=== PATIENT | male | born 1940 | race Caucasian/White ===

== ENCOUNTER 2016-05-27 11:38 | Inpatient (IN) ==
[2016-05-27 13:11] VITALS: BMI 34.2
--- NOTE | 2016-05-27 15:05 | RS.PTINEVL ---
Subjective - Patient information Date of Evaluation: 05/27/16 Date of Arrival on Unit: 05/27/16 Admitted From:: Facility Transfer ([facility]) Usual Living Arrangement: Alone Living Arrangement Comments: Lives at home alone or stays with exwife on occasion Surgical History Comments:: right TKA, Left TKA 05/24/16, bilateral CTS Subjective Information/ Patient Comments:: Patient reports having a hard time waking up. States he has to go to the bathroom. - Level of function Prior to this admission, the patient could do the following:: Independent Selfcare, Independent ADL's, Independent Ambulation Current Level of Function: Partially Dependent Current Equipment Used at Home: walker, bedside commode Interventions - Objective Patient Orientation: Person, Place, Time, Situation Observation: Light dressing to anterior aspect of left knee. Swelling throughout the left LE. Range of Motion - ROM Right Upper Extremity AROM: Slight limitation Left Upper Extremity AROM: Slight limitation Right Lower Extremity AROM: Slight limitation Left Lower Extremity AROM: Marked limitation (left knee) Comments:: Patient demonstrates general rigidity throughout UE and LE's due to Parkinson's. Muscle Strength - Muscle Strength Comments:: Muscle strength of bilateral UE and right LE generally 4/5. Left knee 3+/5, hip and ankle 4/5. Balance - Sitting Balance and Reactions Static Sitting Balance: Fair (+) Dynamic Sitting Balance: Fair (+) - Standing Balance and Reactions Static Standing Balance: Poor (+) Dynamic Standing Balance: Poor (+) Functional Mobility - Bed Mobility Scooting: Mod Assist, 1 person assist, Verbal Cues, Tactile Cues Supine to Sit: Mod Assist, Max Assist, 1 person assist, Verbal Cues, Tactile Cues - Transfers Sit to Stand: Mod Assist, 1 person assist, Verbal Cues, Tactile Cues Stand to Sit: Mod Assist, 1 person assist, Verbal Cues, Tactile Cues Stand Pivot Transfers: Mod Assist, 1 person assist, Verbal Cues, Tactile Cues - Safety Awareness Safety Awareness: Fair Ambulation - Ambulation Weight Bearing Status: FWB Assistive Device Used: Rolling Walker Assistance needed with Ambulation: Mod Assist, 1 person assist, Verbal Cues, Tactile Cues Gait Deviations: Narrow Based gait, Shuffling gait, Step-to gait, Forward posture, Short stride, Lacks step continuity Ambulation Comments: Patient ambulates with left LE in the lead and right LE stays behind with each step and advancement with the walker. Factors Affecting Ambulation: Decreased Balance, Pain, Weakness, Decreased ROM, Decreased Safety Treatment time - Time with patient Total treatment time: 25 (mins) Assessment - Assessment Problem List:: Decreased level of function, Requires training/education, Decreased safety/Risk of falls, Weakness, Pain limits previous level of function Rehab Potential: Good Further Therapy Indicated?: Yes Comments: Patient demonstrates great difficulty with movement: bed mobility, transfers,and ambulation. He presents to be at a high risk for falls and demonstrates the need for skilled therapy to regain his previous level of mobility and improve his safety. Short Term Goals GOAL #1: Supine to sit with min assit of one. Goal to be met by: 06/01/16 GOAL #2: Sit to stand with CGA of one, consistently pushing with UE from seat. Goal to be met by: 06/01/16 GOAL #3: Amb. with rolling walker with step through gait 60 feet w/ CGA of one. Goal to be met by: 06/01/16 Construction Coordinator Goals GOAL #1: All bed mobility independent. Goal to be met by: 06/10/16 GOAL #2: All transfers independent with good safety using RW. Goal to be met by: 06/10/16 GOAL #3: Pt amb. with RW household distances with good safety, with supvn. Goal to be met by: 06/10/16 Plan Plan of Care: Therapeutic EX, Neuromuscular Re-Educ, Therapeutic Activity, Self- Care/Home Management Modalities: Cold Pack/Cryotherapy Frequency of Treatment: 1-2 X day, as tolerated Duration of Treatment: 2 Weeks Anticipated Discharge Destination: Home
[2016-05-27] MEDS ORDERED: ENTACAPONE PO SCH ×2 (17:00→21:00)
[2016-05-27] MEDS ORDERED: CARBIDOPA PO SCH ×2 (17:00→21:00)
[2016-05-27] MEDS ORDERED: [UNRECOGNIZED DRUG - OTHER] PO SCH ×2 (17:00→21:00)
[2016-05-27] MEDS ORDERED: LEVODOPA PO SCH ×2 (17:00→21:00)
[2016-05-27] MEDS: LIPITOR PO SCH ×2 (17:56→21:31)
[2016-05-27] MEDS: LEVODOPA PO SCH (17:58)
[2016-05-27] MEDS: [UNRECOGNIZED DRUG - OTHER] PO SCH (17:58)
[2016-05-27] MEDS: ENTACAPONE PO SCH (17:58)
[2016-05-27] MEDS: CARBIDOPA PO SCH (17:58)
[2016-05-27] MEDS ORDERED: LOPRESSOR PO SCH (21:00)
[2016-05-27] MEDS ORDERED: NON-FORMULARY MEDICATION (Fluoxetine Hcl [Prozac] 40 MG) PO SCH (21:00)
[2016-05-28] MEDS: CARBIDOPA PO SCH (05:52)
[2016-05-28] MEDS: LEVODOPA PO SCH (05:52)
[2016-05-28] MEDS: ENTACAPONE PO SCH (05:52)
[2016-05-28] MEDS: [UNRECOGNIZED DRUG - OTHER] PO SCH (05:52)
[2016-05-28] MEDS ORDERED: ZANTAC PO SCH (06:30)
[2016-05-28] MEDS ORDERED: NON-FORMULARY MEDICATION (Multivitamin [Multi-Vitamin Daily] 1 EACH) PO SCH ×22 (09:00)
[2016-05-28] MEDS ORDERED: OMEGA PO SCH (09:00)
[2016-05-28] MEDS ORDERED: [UNRECOGNIZED DRUG - OTHER] PO SCH (09:00)
[2016-05-28] MEDS ORDERED: VIT E PO SCH (09:00)
[2016-05-28] MEDS ORDERED: UBIDECARENONE PO SCH (09:00)
[2016-05-28] MEDS: COLACE PO SCH ×2 (10:18→20:15)
[2016-05-28] MEDS: LOPRESSOR PO SCH ×2 (10:18→20:16)
[2016-05-28] MEDS: STALEVO PO SCH ×3 (10:19→20:18)
[2016-05-28] MEDS: ZESTRIL PO SCH (10:20)
[2016-05-28] MEDS: NON-FORMULARY MEDICATION (Vitamin B Complex [Vitamin B Complex] 1 EACH) PO SCH (10:20)
[2016-05-28] MEDS: LACTULOSE PO SCH ×2 (10:24→20:16)
[2016-05-28] MEDS ORDERED: NON-FORMULARY MEDICATION (Omega-3 Fatty Acids/Fish Oil [Fish Oil 1,000 Mg Capsule] 1 CAP) PO SCH ×22 (10:45)
--- NOTE | 2016-05-28 11:16 | HP ---
SOURCE: The source of this information is prior knowledge of the patient, review of recent [facility] records, discussion with the patient. The patient is slightly unreliable. PATIENT PROFILE: Luca is a 75-year-old male resident of [facility] [place]. He was cooperative. CHIEF COMPLAINT: "I need rehab." BRIEF HISTORY OF PRESENT ILLNESS: Luca was admitted to [facility] for incapacitating pain in the left knee and had a left total knee. I saw him perioperatively. His gait did not reach a level to allow him to go home and he chose to come here for rehabilitation. He has other comorbidities that influence this (see below). His blood counts at [facility] was running around 10 to 11 with no sign of bleeding. PAST HISTORY: CHILDHOOD: Unremarkable. ALLERGIES/INTOLERANCE: MILK (GI UPSET), TYLOX (SEVERE HIVES), ULTRAM (DIZZINESS) , VIAGRA (HEARTBURN) HOME MEDICATIONS: 1. B-complex vitamin one by mouth each day 2. Multivitamin one by mouth each day 3. Zantac 150 mg each day 4. Coenzyme Q/Fish Oil/Vitamin E one by mouth each day 5. Prozac 20 mg two tablets by mouth each day 6. Aspirin 81 mg one by mouth each day 7. Lopressor 50 mg one-half tablet twice a day 8. Stalevo/Carbidopa/Levodopa/Entacapone 100 mg, two 6 a.m., two at 10 a.m., two at five p.m. and one in the evening 9. Lipitor 10 mg one by mouth at night 10. Zestril 5 mg one by mouth each day CURRENT MEDICATIONS: 1. Calcium 325 mg one by mouth each day 2. Victoria 3 Fish Oil vitamin one by mouth each day 3. Vitamin B Complex one by mouth each day 4. Isabel 10 mg one every four hours as needed 5. Zestril 5 mg one a day 6. Prozac 40 mg a day 7. Lopressor 25 mg b.i.d. 8. Zantac 150 mg a day 9. Lipitor 10 mg a day 10. Stalevo one by mouth as noted above 11. Xarelto 20 mg a day HOSPITALIZATIONS/SURGERIES/PROCEDURES: [facility] admissions include: 04/17/09 for psychiatry; 05/24/16 left total knee. [facility] includes 03/26 through 04/05/11 for right total knee and complications; 04/05 through 04/12/11 TCU; 05/31 through 06/02/14 for acute GA. He has had numerous colonoscopies, the last one showed diverticular disease, hemorrhoidal disease at [facility] by Dr. Beltran on 01/06/13 to repeat in 5 years; previous showed no additional findings. He has had several EGDs, the last with dilatation , a finding of hiatal hernia at [facility], Dr. Beltran on 05/16/14. Previous EGDs additionally had shown LA Grade D esophagitis. Heart cath and stent, Dr. Hunt , [facility], 06/01/14. He had carpal tunnel by Tobias Landa in 1989; the other side the same year. Orthoscopic right knee, Dr. Batsheva Landa, first right then left in the . He had a right ACL, Dr. Tobias Ladna, . He had nasal lesion removed by Dr. Mendoza at [facility], 12/17/10. A right total knee, Dr. Drake, [facility], 03/26/11 and subsequent debridement of that knee , [facility] on 03/31/11. FAMILY HISTORY: Diabetes in mother; heart disease in maternal uncle; stomach cancer in maternal uncle; an unknown cancer in father. HABITS: Smoker, age 17, briefly for about 2 years; no significant secondary smoke, no chewing and only occasional alcohol. SOCIAL HISTORY: once, 02/2005, has three children. 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 REVIEW OF SYSTEMS: GENERAL: There has been no recent fever; he abraded his left lower extremity before the surgery with a piece of firewood. HEENT: Denies headache, nasal congestion. NECK: Denies pain or mass but is usually somewhat stiff. CHEST: Denies cough or wheeze. CARDIOVASCULAR: Denies chest pain, palpitations and his left leg has been swollen since surgery. GI: Denies abdominal pain, nausea, vomiting. He has had diminished stools but medicines have given him a daily bowel movement the last two days. : Denies dysuria. MUSCULOSKELETAL/NEUROLOGIC: With his Parkinson's has muscle weakness and stiffness; other than the left knee no other joint has been given him pain or any swelling. NEUROLOGIC: There is no history of facial dysemmetry, yard pipe grader unequal or TIA/CVA. He has had Parkinson's since 2011 and it has been progressive. PSYCHIATRIC: He does have at times have depression/anxiety but not recently has been suicidal. He does have at least one son that lives with him. PHYSICAL EXAMINATION: VITALS: Temperature 97.7, pulse 84, respirations 28, BP 104/56. Height 5'5", weight 205 lbs. GENERAL: Appropriate for age, unchanged from usual appearance, white male in no obvious distress. INTEGUMENT: A 3 cm abrasion to the left lower extremity; scabbed and dry (just above the ankle). Edema of the left lower extremity and incision over the top of the knee that is intact. Nonicteric sclera. Mucous membranes moist. HEENT: Mask facies; extraocular movements intact without palsy; tongue is moist and midline. Speech is slow but clear. NECK: No mass or thyroid. Fully supple. CHEST: Clear bilaterally to auscultation. CARDIOVASCULAR: S1, S2 without murmur or carotid bruit. Both distal pulses intact though the left was a little more difficult to find with edema. GI: Overweight/obese. No rebound, guarding, mass or tenderness. MUSCULOSKELETAL/NEUROLOGIC: Mask facies. Stiffened throughout with no cogwheeling. Adhesive Bandage Making Operator are equal. Neurologic - speech is slow, purposeful. PSYCHIATRIC: Seems somewhat paranoid or mildly withdrawn; though slowly his conversation was purposeful and direct. ASSESSMENT/PROBLEM LIST: 0. 75-year-old white male - advanced age. 1. Allergies/intolerances see above. 2. Procedural history see above. 3. Family history see above. 4. Hiatal hernia on EGD. 5. Gastroesophageal reflux on EGD. 6. Hemorrhoidal disease. 7. Diverticular disease. 8. Dysphasia - has influence from Parkinson's. 9. Previous carpal tunnel surgeries. 10. Degenerative joint disease - diffuse. 11. Brief smoker. 12. Chronic anxiety. 13. Chronic depression. 14. Decreased libido. 15. Erectile dysfunction. 16. Spinal disk disease. 17. Spinal spondylosis. 18. Chronic back pain. 19. Gait difficulty - multifactorial. 20. Hemachromatosis. 21. Hyperlipidemia. 22. Chronic insomnia. 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 24. Mild memory loss. 25. Parkinson's disease. 26. Periodic leg movement disorder. 27. Chronic tinnitus. 28. Overweight. 29. History of PE with previous knee surgery. 30. History of DVT - with previous knee surgery. 31. Anticoagulation, currently on Xarelto. 32. Chronic constipation. 33. Vitamin D deficiency. 34. Hearing loss. 35. Prostatism. REASON FOR ADMISSION: # Postop left total knee # Gait decline - acute on chronic # Incision - left knee # Edema - left knee # Abrasion - left knee # Postop anemia - mild # Knee pain - postop REHAB COURSE: Will control pain, watch his incision, work with therapy, PT/OT to improve his gait and ambulation. In addition he will have nursing and dietary supervision. Will try to control other problems in the meantime and prevent DVT. Discharge plan at this point early on is home when improved. SARA
--- NOTE | 2016-05-28 12:59 | RS.OTINEVL ---
Subjective - Patient information Date of Evaluation: 05/28/16 Date of Arrival on Unit: 05/27/16 Admitted From:: Facility Transfer ([facility]) Usual Living Arrangement: Alone Living Arrangement Comments: Lives at home alone or stays with exwife on occasion Medical History Comments:: L TKA, Parkinson's Surgical History: Knee Replacement Surgical History Comments:: right TKA, Left TKA 05/24/16, bilateral CTS Subjective Information/ Patient Comments:: I just need a rest. My pain is 2-3/ 10. I was okay before I moved. - Level of function Prior to this admission, the patient could do the following:: Independent Selfcare, Independent ADL's, Independent Ambulation Abilities prior to this admission: Pt was living at home alone. Current Level of Function: Partially Dependent Current Equipment Used at Home: walker, bedside commode Pain Assessment - Pain Pain Score: 3 Side: left Pain Location Body Site: Knee Pain Aggravating Factors: ADL's, Changing Position, Exercise/Activity, Standing , Walking Pain Alleviating Factors: Ice, Medication, Position Change Interventions - Objective Patient Orientation: Person, Place, Situation Current Interventions: IV's Observation: Pt has redness a edema of the LLE. Interventions - ROM Right Upper Extremity AROM: WFL's Left Upper Extremity AROM: WFL's - Strength Right Upper Extremity Strength: Mild Weakness Left Upper Extremity Strength: Mild Weakness - Sensation Right Upper Extremity Sensation: Intact/Normal Left Upper Extremity Sensation: Intact/Normal Balance - Sitting Balance Static Sitting Balance: Good Dynamic Sitting Balance: Good - Standing Balance Static Standing Balance: Fair Dynamic Standing Balance: Fair ADL Skills - Self Feeding Self Feeding: Independent - Grooming Grooming: Min Assist - Bathing Bathing UE: Min Assist Bathing LE: Min Assist - Dressing Dressing UE: Min Assist Dressing LE: Max Assist - Toilet Management Toileting Management: Min Assist Functional Mobility - Bed Mobility Rolling R/L: Min Assist Scooting: Min Assist Supine to Sit: Min Assist Sit to Supine: Min Assist - Transfers Sit to Stand: Min Assist Stand to Sit: Min Assist Stand Pivot Transfers: Min Assist - Ambulation Weight Bearing Status: WBAT Assistive Device Used: Rolling Walker Orthotic/Prosthetic Device: No Assistance needed with Ambulation: Min Assist - Safety Awareness Safety Awareness: Fair Additional Treatment Performed - Additional units charged ADL: 15 - Time with patient Total treatment time: 25 Activities Patient Interests:: Watching Television, Visiting/Socializing Patient Education Patient Education: Education of diagnosis, Body/Joint mechanics, Home Exercise Program Teaching Recipient: Patient, Primary Caregiver Teaching Methods: Discussion Assessment Problem List:: Decreased level of function, Requires training/education, Decreased safety/Risk of falls, Weakness, Pain limits previous level of function Rehab Potential: Good Further Therapy Indicated?: Yes Short Term Goals - Goals GOAL 1: Pt to tolerate 10 minutes of sink Level ADLS with rests PRN. Goal to be met by: 06/04/16 GOAL 2: Pt to be independent with bed mobility. Goal to be met by: 06/04/16 GOAL 3: Pt to increase BUE strength to 4+/5 Goal to be met by: 06/04/16 Half-Way Goals GOAL 1: Pt to tolerate 15 minutes of sink level ADLS with rests PRN. Goal to be met by: 06/11/16 GOAL 2: Pt to be modified Independent with ADLS. Goal to be met by: 06/11/16 GOAL 3: Pt to be Independent with Home exercise program. Goal to be met by: 06/11/16 Plan Plan of Care: Therapeutic EX, Neuromuscular Re-Educ, Therapeutic Activity, Self- Care/Home Management Modalities: Cold Pack/Cryotherapy Frequency of Treatment: 1-2 X day, as tolerated Duration of Treatment: 2 Weeks Anticipated Discharge Destination: Home
[2016-05-28] MEDS: NORCO 10-325 PO PRN (13:18)
--- NOTE | 2016-05-28 16:12 | US ---
EXAM: Left lower extremity venous doppler. HISTORY: Left leg redness and swelling. COMPARISON: None available. TECHNIQUE: Multiple grayscale and color doppler images were obtained. FINDINGS: There is normal flow, compressibility and augmentation of flow within the left common fem oral, greater saphenous, profunda, femoral, popliteal, posterior tibial, anterior tibial and peronea l veins. IMPRESSION: No evidence for left lower extremity deep vein thrombosis at the levels examined.
[2016-05-28] MEDS: XARELTO PO SCH (17:20)
[2016-05-28] MEDS: PROZAC PO SCH (20:16)
[2016-05-28] MEDS: LIPITOR PO SCH (20:16)
[2016-05-29] MEDS: NORCO 10-325 PO PRN ×2 (03:12→09:32)
[2016-05-29 05:17] LABS: BASOPHILS # (AUTO) 0.1 K/uL (0-0.2); BASOPHILS % (AUTO) 0.5 % (0.0-3.0); EOSINOPHILS # (AUTO) 0.2 K/ul (0.0-0.7); EOSINOPHILS % (AUTO) 2.5 % (0.0-7.0); HEMATOCRIT 30.2 % (42.0-52.0); HEMOGLOBIN 10.5 g/dl (14.0-18.0); IMMATURE GRANULOCYTE % (AUTO) 0.7 % (0.0-5.0); LYMPHOCYTES # (AUTO) 0.7 K/uL (0.60-3.4); LYMPHOCYTES % (AUTO) 7.7 (10.0-50.0); MEAN CORPUSCULAR HGB CONC 34.8 (31.8-35.4); MEAN CORPUSCULAR VOLUME 92.1 fl (80.0-94.0); MONOCYTES # (AUTO) 1.3 K/uL (0.4-2.0); NEUTROPHILS # (AUTO) 6.8 K/ul (2.0-6.9); NEUTROPHILS % (AUTO) 74.6; PLATELET COUNT 203 10^3/uL (140-440); RED BLOOD COUNT 3.28 10^6/ul (4.70-6.10); WHITE BLOOD COUNT 9.12 K/ul (4.2-10.2)
[2016-05-29 05:40] LABS: ANION GAP 12.4; CALCIUM 8.7 mg/dL (8.2-10.2); CREATININE 0.84 mg/dL (0.60-1.10); POTASSIUM 4.4 mmol/L (3.5-5.1)
[2016-05-29] MEDS: ZANTAC PO SCH (05:51)
[2016-05-29] MEDS: STALEVO PO SCH ×4 (05:52→20:41)
[2016-05-29 06:22] LABS: FOLATE 17.2 ng/mL (3.1-20.5)
[2016-05-29] MEDS: COLACE PO SCH ×2 (08:28→20:41)
[2016-05-29] MEDS: LOPRESSOR PO SCH ×2 (08:28→20:42)
[2016-05-29] MEDS: OMEGA-3 FISH OIL PO SCH (08:29)
[2016-05-29] MEDS: ZESTRIL PO SCH (08:29)
[2016-05-29] MEDS: LACTULOSE PO SCH ×2 (08:29→20:40)
[2016-05-29] MEDS: NON-FORMULARY MEDICATION (Vitamin B Complex [Vitamin B Complex] 1 EACH) PO SCH (08:30)
[2016-05-29] MEDS: FERROUS SULFATE PO SCH (11:36)
--- NOTE | 2016-05-29 12:45 | PN ---
DATE OF VISIT: 05/28/16 - SWING BED SUBJECTIVE: Because of increasing pain in the left knee, Luca went into [facility] and had a left total knee. After three days of convalescence there he was transferred here for rehabilitation. He has underlying Parkinson's which contributes to diminished gait and abilities. Today, there was a concern that the edema he has had in the left leg was now associated with redness, soreness and even a blister near the incision site. Dr. Drake was consulted and thought this still could be within normal limits; venous scan was done and just came back showing no clots. He has been on Xarelto since surgery. He did not walk much today. He is eating and sleeping. OBJECTIVE: V/S: Temperature 98, respirations 20, BP 98/57, weight 205. GENERAL: No obvious distress but shallow; very slow in some of his thought processes. INTEGUMENT: The left lower extremity has the 3 cm scabbed abrasion, dorsal surface, distal tibia; and from the knee proximal there is swelling, redness, fullness and even mild tenderness. The incision is swollen, erythematous, mildly tender with at least a quarter size shallow bullous on the medial distal aspect. There is no drainage or odor. HEENT: Eyegrounds are pink. Nonicteric sclerae. NECK: No palpable mass or thyroid. CHEST: Clear. CARDIOVASCULAR: Regular. Edema is noted in the left leg. GI: Nontender. ASSESSMENT: # Postop total left knee. # Postop knee incision; despite the issues described it still seems to be healing and is intact. # Gait decline - acute on chronic. # Pain - left leg - slowly improving. # Edema - left leg; some of the features of his exam would be consistent with various degree of hematoma of the soft tissues and the resultant inflammation coming from that. He doesn't seem to clinically, even exam davies, show definite signs of cellulitis. # Anticoagulation - currently Xarelto. # History of PE. # History of DVT; both of these were perioperative. # Parkinson's disease - moderate symptomatology and stable. PLAN: 1. Check CBC, BMP, iron percent sat, B12 and folate - i.e. limited substrate analysis. 2. Medications reviewed and continued. 3. Activity - hoping with PT/OT and time he can walk and improve to the point of going home. 4. Discharge planning from this point hoping for home. SARA
[2016-05-29] MEDS: XARELTO PO SCH (16:26)
[2016-05-29] MEDS: PROZAC PO SCH (20:41)
[2016-05-29] MEDS: LIPITOR PO SCH (20:41)
[2016-05-30] MEDS: NORCO 10-325 PO PRN ×4 (03:44→18:17)
[2016-05-30] MEDS: STALEVO PO SCH ×4 (05:42→20:27)
[2016-05-30] MEDS: ZANTAC PO SCH (05:42)
[2016-05-30] MEDS: FERROUS SULFATE PO SCH (09:34)
[2016-05-30] MEDS: LACTULOSE PO SCH ×2 (09:34→20:27)
[2016-05-30] MEDS: COLACE PO SCH ×2 (09:34→20:28)
[2016-05-30] MEDS: LOPRESSOR PO SCH ×2 (09:35→20:27)
[2016-05-30] MEDS: OMEGA-3 FISH OIL PO SCH (09:36)
[2016-05-30] MEDS: NON-FORMULARY MEDICATION (Vitamin B Complex [Vitamin B Complex] 1 EACH) PO SCH (09:37)
[2016-05-30] MEDS: ZESTRIL PO SCH (09:37)
--- NOTE | 2016-05-30 16:04 | DI ---
Examination: Two radiographic images of the left knee. Comparison: None available. Reason for study: Left knee replacement with redness postop. FINDINGS: Operative changes are seen after left total knee replacement. There is no evidence of hardware comp lication or periprosthetic fracture. There is a moderate amount of soft tissue swelling seen adjace nt to the operative site. No discrete fluid collection. Impression: 1. Operative changes after left total knee arthroplasty without evidence of hardware complication. 2. Moderate amount of soft tissue swelling is seen adjacent to the operative site. This may be post operative, inflammatory, or infectious. Recommend further evaluation.
[2016-05-30] MEDS: XARELTO PO SCH (18:13)
[2016-05-30] MEDS: PROZAC PO SCH (20:27)
[2016-05-30] MEDS: LIPITOR PO SCH (20:28)
[2016-05-31] MEDS: STALEVO PO SCH ×4 (05:35→21:16)
[2016-05-31] MEDS: ZANTAC PO SCH (05:36)
[2016-05-31] MEDS ORDERED: LASIX TAB PO STA (06:07)
[2016-05-31] MEDS: NORCO 10-325 PO PRN ×4 (08:53→21:14)
[2016-05-31] MEDS: OMEGA-3 FISH OIL PO SCH (08:53)
[2016-05-31] MEDS: ZESTRIL PO SCH (08:53)
[2016-05-31] MEDS: LACTULOSE PO SCH ×2 (08:53→21:16)
[2016-05-31] MEDS: COLACE PO SCH ×2 (08:53→21:16)
[2016-05-31] MEDS: LOPRESSOR PO SCH ×2 (08:54→21:16)
[2016-05-31] MEDS: FERROUS SULFATE PO SCH (08:54)
[2016-05-31] MEDS: NON-FORMULARY MEDICATION (Vitamin B Complex [Vitamin B Complex] 1 EACH) PO SCH (09:50)
--- NOTE | 2016-05-31 13:38 | PN ---
DATE OF VISIT: 05/30/16 SUBJECTIVE: Because of increasing pain in the left knee he sought out a left total knee; this was done at [facility] by Dr. Drake and for his convalescence he came here. His recovery is complicated by previous Parkinson's; since here he has continued to have quite a bit of swelling of the left lower extremity and scan showed no clot. The leg gives an appearance of hematoma in a diffuse fashion; though it has been sore, there was no temperature until last night and it was 100.4. He also does not take a lot of deep breathing and incentive spirometry was started today. He is eating well. His ambulation was up to 50 feet today. He is stooling. OBJECTIVE: V/S: Temperature 98.2, pulse 78, respirations 24, BP 99/59. GENERAL: Asleep but arousable. INTEGUMENT: His incision still has ecchymoses and now a more collapsed dry firm quarter-sized bullae on the lower aspect. The amount of fullness induration runs from the hip distal; I don't appreciate any fluctuance or distinct induration. CHEST: Clear. CARDIOVASCULAR: S1, S2 without murmur and only the left lower extremity edema. LABS/X-RAYS: On 05/29 he had a white count of 9.2, hemoglobin 10.5. His chemistries showed a glucose of 122, BUN 21; creatinine only 0.4. ASSESSMENT: # Postop left knee. # Postop knee incision. # Gait decline - acute on chronic. # Pain - left leg slowly improving. # Edema - left leg. Some of this is consistent with his postop edema. # Anticoagulation - currently Xarelto. # History of PE. # History of DVT. # Parkinson's disease. # Postop anemia. # Brief temperature; could be from the edema and hematomas of the left lower extremity and it could also be from atelectasis. It still does not resoundingly support cellulitis. PLAN: 1. Since he has an appointment with Dr. Drake, will see what he things about the leg tomorrow. 2. Continue incentive spirometry. 3. Medicines reviewed - continued. 4. Labs - maybe will be repeated in one week. MTDD
[2016-05-31] MEDS: XARELTO PO SCH (17:24)
[2016-05-31] MEDS: ASPIRIN EC PO SCH (18:39)
[2016-05-31] MEDS: PROZAC PO SCH (21:14)
[2016-05-31] MEDS: LIPITOR PO SCH (21:14)
[2016-06-01] MEDS: STALEVO PO SCH ×4 (06:10→21:31)
[2016-06-01] MEDS: ZANTAC PO SCH (06:10)
[2016-06-01] MEDS: LACTULOSE PO SCH ×2 (09:44→21:31)
[2016-06-01] MEDS: LOPRESSOR PO SCH ×2 (09:45→21:30)
[2016-06-01] MEDS: FERROUS SULFATE PO SCH (09:45)
[2016-06-01] MEDS: OMEGA-3 FISH OIL PO SCH (09:46)
[2016-06-01] MEDS: ZESTRIL PO SCH (09:46)
[2016-06-01] MEDS: COLACE PO SCH ×2 (09:46→21:30)
[2016-06-01] MEDS: NON-FORMULARY MEDICATION (Vitamin B Complex [Vitamin B Complex] 1 EACH) PO SCH (09:46)
[2016-06-01] MEDS: ASPIRIN EC PO SCH (09:46)
[2016-06-01] MEDS: NORCO 10-325 PO PRN ×2 (15:39→23:00)
[2016-06-01] MEDS: LIPITOR PO SCH (21:30)
[2016-06-01] MEDS: PROZAC PO SCH (21:31)
[2016-06-02] MEDS: ZANTAC PO SCH (05:31)
[2016-06-02] MEDS: STALEVO PO SCH ×4 (05:31→20:25)
[2016-06-02] MEDS: OMEGA-3 FISH OIL PO SCH (09:07)
[2016-06-02] MEDS: LOPRESSOR PO SCH ×2 (09:07→20:24)
[2016-06-02] MEDS: ZESTRIL PO SCH (09:07)
[2016-06-02] MEDS: COLACE PO SCH ×2 (09:07→20:25)
[2016-06-02] MEDS: LACTULOSE PO SCH ×2 (09:08→20:24)
[2016-06-02] MEDS: FERROUS SULFATE PO SCH (09:08)
[2016-06-02] MEDS: ASPIRIN EC PO SCH (10:08)
[2016-06-02] MEDS: NON-FORMULARY MEDICATION (Vitamin B Complex [Vitamin B Complex] 1 EACH) PO SCH (10:08)
[2016-06-02] MEDS: NORCO 10-325 PO PRN (13:51)
[2016-06-02] MEDS: PROZAC PO SCH (20:24)
[2016-06-02] MEDS: LIPITOR PO SCH (20:24)
[2016-06-03] MEDS: ZANTAC PO SCH (06:07)
[2016-06-03] MEDS: STALEVO PO SCH ×4 (06:08→20:23)
[2016-06-03] MEDS: ASPIRIN EC PO SCH (08:13)
[2016-06-03] MEDS: NON-FORMULARY MEDICATION (Vitamin B Complex [Vitamin B Complex] 1 EACH) PO SCH (08:13)
[2016-06-03] MEDS: LACTULOSE PO SCH ×2 (08:14→20:24)
[2016-06-03] MEDS: ZESTRIL PO SCH (08:14)
[2016-06-03] MEDS: FERROUS SULFATE PO SCH (08:14)
[2016-06-03] MEDS: OMEGA-3 FISH OIL PO SCH (08:14)
[2016-06-03] MEDS: LOPRESSOR PO SCH ×2 (08:14→20:24)
[2016-06-03] MEDS: COLACE PO SCH ×2 (08:17→20:24)
[2016-06-03] MEDS: NORCO 10-325 PO PRN (11:24)
[2016-06-03] MEDS: LIPITOR PO SCH (20:24)
[2016-06-03] MEDS: PROZAC PO SCH (20:24)
[2016-06-04] MEDS: NORCO 10-325 PO PRN ×2 (01:45→17:18)
[2016-06-04] MEDS: ZANTAC PO SCH (05:42)
[2016-06-04] MEDS: STALEVO PO SCH ×4 (05:42→20:46)
[2016-06-04] MEDS: ASPIRIN EC PO SCH (08:56)
[2016-06-04] MEDS: NON-FORMULARY MEDICATION (Vitamin B Complex [Vitamin B Complex] 1 EACH) PO SCH (08:57)
[2016-06-04] MEDS: FERROUS SULFATE PO SCH (08:58)
[2016-06-04] MEDS: LACTULOSE PO SCH ×2 (08:58→20:46)
[2016-06-04] MEDS: COLACE PO SCH ×2 (08:58→20:46)
[2016-06-04] MEDS: LOPRESSOR PO SCH ×2 (08:59→20:46)
[2016-06-04] MEDS: ZESTRIL PO SCH (09:00)
[2016-06-04] MEDS: OMEGA-3 FISH OIL PO SCH (09:00)
--- NOTE | 2016-06-04 12:44 | PN ---
DATE OF VISIT: 06/02/16 SUBJECTIVE: Because of increasing pain of his left knee he sought out a left total knee. It was done at [facility] by Dr. Drake. His convalescence started there. His recovery was complicated by ongoing Parkinson's. He was therefore given an option of coming here for swing bed and he accepted. He has been getting therapy. Mid admission he had enough swelling in his left leg that a scan was done that showed no clot. He was on Xarelto at the time. He was seen the by Dr. Drake; he apparently wanted the Xarelto stopped and suggested aspirin which was accomplished. He is walking better, eating, drinking and having stools. OBJECTIVE: V/S: Temperature 98.4, pulse 78, respirations 20, BP 115/62; afebrile all day. GENERAL: No acute distress. CHEST: Clear. CARDIOVASCULAR: Regular S1, S2 without murmur. EXTREMITIES: He has no edema right leg and bluish green hue to most of the upper -lower left leg with a full brawny type fullness but no induration or fluctuants. His incision is well-approximated and dry. Previous bullae are now flat and dry. He can extend the knee minus 10 degrees. LABS/X-RAYS: There have been no labs since the . Hematology - hemoglobin 10.5 and the same date chemistries with noted GFR at 89. ASSESSMENT: # POSTOP LEFT KNEE # POSTOP KNEE INCISION # GAIT DECLINE - ACUTE ON CHRONIC ISSUE # PAIN - LEFT LEG SLOWLY IMPROVING # EDEMA - LEFT LEG - APPARENTLY INCREASINGLY MORE CONSISTENT FOR HEMATOMA FORMATION AND SLOWLY IMPROVING # ANTICOAGULATION - DECISION BY ORTHO TO SWITCH FROM XARELTO TO ASPIRIN; HE IS ACTIVE ENOUGH I CAN BE COMFORTABLE WITH THIS # HISTORY OF PE # HISTORY OF DVT # PARKINSON'S DISEASE # POSTOP ANEMIA # VERY BRIEF TEMPERATURE; COULD HAVE BEEN FROM THE EDEMA/HEMATOMA OR EVEN ATELECTASIS - RESOLVED PLAN: 1. Continue therapy and ambulation and watching everything else. 2. Medications reviewed - same. 3. Labs reviewed - maybe later in the week. 4. Discharge planning discussed; it is still for home at this point. [facility]
[2016-06-04] MEDS: PROZAC PO SCH (20:46)
[2016-06-04] MEDS: LIPITOR PO SCH (20:46)
[2016-06-05 04:38] LABS: BASOPHILS # (AUTO) 0.1 K/uL (0-0.2); BASOPHILS % (AUTO) 0.8 % (0.0-3.0); EOSINOPHILS # (AUTO) 0.4 K/ul (0.0-0.7); EOSINOPHILS % (AUTO) 2.8 % (0.0-7.0); HEMATOCRIT 31.7 % (42.0-52.0); HEMOGLOBIN 10.8 g/dl (14.0-18.0); IMMATURE GRANULOCYTE % (AUTO) 1.4 % (0.0-5.0); LYMPHOCYTES # (AUTO) 1.5 K/uL (0.60-3.4); LYMPHOCYTES % (AUTO) 12.3 (10.0-50.0); MEAN CORPUSCULAR HGB CONC 34.1 (31.8-35.4); MEAN CORPUSCULAR VOLUME 93.8 fl (80.0-94.0); MONOCYTES # (AUTO) 1.2 K/uL (0.4-2.0); MONOCYTES % (AUTO) 9.4 (0-10); NEUTROPHILS % (AUTO) 73.3; PLATELET COUNT 461 10^3/uL (140-440); RED BLOOD COUNT 3.38 10^6/ul (4.70-6.10); WHITE BLOOD COUNT 12.34 K/ul (4.2-10.2)
[2016-06-05] MEDS: ZANTAC PO SCH (05:48)
[2016-06-05] MEDS: STALEVO PO SCH ×4 (05:48→21:33)
[2016-06-05] MEDS: OMEGA-3 FISH OIL PO SCH (09:12)
[2016-06-05] MEDS: ASPIRIN EC PO SCH (09:12)
[2016-06-05] MEDS: ZESTRIL PO SCH (09:12)
[2016-06-05] MEDS: COLACE PO SCH ×2 (09:12→21:29)
[2016-06-05] MEDS: FERROUS SULFATE PO SCH (09:12)
[2016-06-05] MEDS: LACTULOSE PO SCH ×2 (09:13→21:29)
[2016-06-05] MEDS: LOPRESSOR PO SCH ×2 (09:13→21:30)
[2016-06-05] MEDS: NON-FORMULARY MEDICATION (Vitamin B Complex [Vitamin B Complex] 1 EACH) PO SCH (09:13)
--- NOTE | 2016-06-05 09:40 | PN ---
DATE OF VISIT: 06/04/16 SUBJECTIVE: Luca, because of increasing pain, had a left total knee done at [facility]. He was transitioned here to swing. He developed significant edema in that leg and was negative for clot on scan. He saw Dr. 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 Since he was up and about, I went ahead and let him start aspirin and stop the Xarelto. His therapies are improving, he is ambulating further and easier. He has less leg swelling and discomfort and his ex-, who is here, says she is going to help take care of him when he goes home. He actually wants to go home tomorrow. OBJECTIVE: V/S: Temperature 98.6, pulse 77, respirations 18, BP 114/63. All of these patterns are stable. GENERAL: Pleasant, no obvious distress. INTEGUMENT: Continued greenish-yellow hue to the left lower extremity but less swelling and less firmness. There is no induration or fluctuance anywhere. No edema of the right leg. Incision is intact and dry. NECK: No visible mass or tenderness. CHEST: Clear. CARDIOVASCULAR: Regular. Edema is noted. GI: Soft. LABS/X-RAYS: No labs since the . Hemoglobin then was 10.5. ASSESSMENT: # Postop left knee # Postop left knee incision # Gait decline - acute on chronic issues # Pain left leg - slowly improving # Edema left leg - apparently more of a hematoma in a diffuse fashion and slowly improving # Anticoagulation - transition to aspirin from Xarelto # History of PE - appears to be going without # History of DVT - appears to be going without # Parkinson's disease # Postop anemia # Brief fever - resolved PLAN: 1. Will check with therapy and see if he is potentially dischargeable tomorrow. 2. Will check an iron level and CBC in the morning. SARA
[2016-06-05] MEDS: NORCO 10-325 PO PRN ×2 (11:28→21:31)
[2016-06-05] MEDS: LIPITOR PO SCH (21:29)
[2016-06-05] MEDS: PROZAC PO SCH (21:30)
[2016-06-06] MEDS: STALEVO PO SCH ×2 (05:52→09:02)
[2016-06-06] MEDS: ZANTAC PO SCH (05:53)
[2016-06-06 06:22] VITALS: BP 119/70; TEMP 98.6
[2016-06-06] MEDS: OMEGA-3 FISH OIL PO SCH (08:53)
[2016-06-06] MEDS: ASPIRIN EC PO SCH (08:55)
[2016-06-06] MEDS: COLACE PO SCH (08:56)
[2016-06-06] MEDS: ZESTRIL PO SCH (08:56)
[2016-06-06] MEDS: FERROUS SULFATE PO SCH (08:57)
[2016-06-06] MEDS: LACTULOSE PO SCH (08:58)
[2016-06-06] MEDS: LOPRESSOR PO SCH (08:58)
[2016-06-06] MEDS: NORCO 10-325 PO PRN (08:59)
[2016-06-06] MEDS: NON-FORMULARY MEDICATION (Vitamin B Complex [Vitamin B Complex] 1 EACH) PO SCH (09:08)
--- NOTE | 2016-06-06 11:40 | RS.SLPCNOT ---
Speech Case Note Date of Note: 06/06/16 Title: Speech Consult Screen Note: DIETITIAN RESEARCH assessed pt's need for skilled speech therapy services. Nursing and pt reported discharge for home this date. Based on this information, DIETITIAN RESEARCH completed informal assessment of pts speech and swallow function. DIETITIAN RESEARCH noted deficits with vocal quality, pitch, and volume which may be impacted from respiration support. During communication interactions,speech was approximately 80% intelligible, which may be attributed to pt exerting no energy and sustaining a relaxed sitting postion in recliner. DIETITIAN RESEARCH assessed swallow function with laryngeal palpation and verbal interview. Pt has decreased laryngeal excursion, difficulty initiating swallow without liquids, and multiple swallows with liquid consistency. After three drinks of thin liquids pt had 1x immediate overt cough. DIETITIAN RESEARCH suspects laryngeal penetration or flash aspiration. Verbal interview revealed pts difficulty with regular diet textures,sometimes liquids and pills. Pt noticed symptoms at home at least one time per day. DIETITIAN RESEARCH provided written recommendations for pt to follow in the home environment, to decrease coughing episodes with PO intake. DIETITIAN RESEARCH recommends further speech therapy to faciliate vocal quality, safety with PO intake, and improve respiratory support. DIETITIAN RESEARCH provided written information for choices of outpatient rehab.
--- NOTE | 2016-06-07 11:44 | DS ---
PATIENT PROFILE: Luca is a 75-year-old male resident of [facility]. He was cooperative. CHIEF COMPLAINT: "I need rehab." BRIEF HISTORY OF PRESENT ILLNESS: Luca was admitted to [facility] for incapacitating pain in the left knee and had a left total knee. I saw him perioperatively. His gait did not reach a level to allow him to go home and he chose to come here for rehabilitation. He has other comorbidities that influence this (see below). His blood counts at [facility] was running around 10 to 11 with no sign of bleeding. PAST HISTORY: CHILDHOOD: Unremarkable. ALLERGIES/INTOLERANCE: MILK (GI UPSET), TYLOX (SEVERE HIVES), ULTRAM (DIZZINESS) , VIAGRA (HEARTBURN) HOME MEDICATIONS: 1. B-complex vitamin one by mouth each day 2. Multivitamin one by mouth each day 3. Zantac 150 mg each day 4. Coenzyme Q/Fish Oil/Vitamin E one by mouth each day 5. Prozac 20 mg two tablets by mouth each day 6. Aspirin 81 mg one by mouth each day 7. Lopressor 50 mg one-half tablet twice a day 8. Stalevo/Carbidopa/Levodopa/Entacapone 100 mg, two 6 a.m., two at 10 a.m., two at five p.m. and one in the evening 9. Lipitor 10 mg one by mouth at night 10. Zestril 5 mg one by mouth each day CURRENT MEDICATIONS: 1. Calcium 325 mg one by mouth each day 2. [place] 3 Fish Oil vitamin one by mouth each day 3. Vitamin B Complex one by mouth each day 4. [place] 10 mg one every four hours as needed 5. Zestril 5 mg one a day 6. Prozac 40 mg a day 7. Lopressor 25 mg b.i.d. 8. Zantac 150 mg a day 9. Lipitor 10 mg a day 10. Stalevo one by mouth as noted above 11. Xarelto 20 mg a day HOSPITALIZATIONS/SURGERIES/PROCEDURES: [facility] admissions include: 04/17/09 for psychiatry; 05/24/16 left total knee. [facility] includes 03/26 through 04/05/11 for right total knee and complications; 04/05 through 04/12/11 TCU; 05/31 through 06/02/14 for acute RI. He has had numerous colonoscopies, the last one showed diverticular disease, hemorrhoidal disease at [facility] by Dr. Beltran on 01/06/13 to repeat in 5 years; previous showed no additional findings. He has had several EGDs, the last with dilatation , a finding of hiatal hernia at [place], Dr. Beltran on 05/16/14. Previous EGDs additionally had shown LA Grade D esophagitis. Heart cath and stent, Dr. Hunt , [facility], 06/01/14. He had carpal tunnel by Tobias Landa in 1989; the other side the same year. Orthoscopic right knee, Dr. Batsheva Landa, first right then left in the . He had a right ACL, Dr. Tobias Landa, . He had nasal lesion removed by Dr. Mendoza at [facility], 12/17/10. A right total knee, Dr. Drake, [facility], 03/26/11 and subsequent debridement of that knee , [facility] on 03/31/11. FAMILY HISTORY: Diabetes in mother; heart disease in maternal uncle; stomach cancer in maternal uncle; an unknown cancer in father. HABITS: Smoker, age 17, briefly for about 2 years; no significant secondary smoke, no chewing and only occasional alcohol. SOCIAL HISTORY: once, 02/2005, has three children. 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 REVIEW OF SYSTEMS: GENERAL: There has been no recent fever; he abraded his left lower extremity before the surgery with a piece of firewood. HEENT: Denies headache, nasal congestion. NECK: Denies pain or mass but is usually somewhat stiff. CHEST: Denies cough or wheeze. CARDIOVASCULAR: Denies chest pain, palpitations and his left leg has been swollen since surgery. GI: Denies abdominal pain, nausea, vomiting. He has had diminished stools but medicines have given him a daily bowel movement the last two days. : Denies dysuria. MUSCULOSKELETAL/NEUROLOGIC: With his Parkinson's has muscle weakness and stiffness; other than the left knee no other joint has been given him pain or any swelling. NEUROLOGIC: There is no history of facial dysemmetry, audit associate unequal or TIA/CVA. He has had Parkinson's since 2010 and it has been progressive. PSYCHIATRIC: He does have at times have depression/anxiety but not recently has been suicidal. He does have at least one son that lives with him. PHYSICAL EXAMINATION: VITALS: Temperature 97.7, pulse 84, respirations 28, BP 104/56. Height 5'5", weight 205 lbs. GENERAL: Appropriate for age, unchanged from usual appearance, white male in no obvious distress. INTEGUMENT: A 3 cm abrasion to the left lower extremity; scabbed and dry (just above the ankle). Edema of the left lower extremity and incision over the top of the knee that is intact. Nonicteric sclera. Mucous membranes moist. HEENT: Mask facies; extraocular movements intact without palsy; tongue is moist and midline. Speech is slow but clear. NECK: No mass or thyroid. Fully supple. CHEST: Clear bilaterally to auscultation. CARDIOVASCULAR: S1, S2 without murmur or carotid bruit. Both distal pulses intact though the left was a little more difficult to find with edema. GI: Overweight/obese. No rebound, guarding, mass or tenderness. MUSCULOSKELETAL/NEUROLOGIC: Mask facies. Stiffened throughout with no cogwheeling. Nuclear Operations Specialist are equal. Neurologic - speech is slow, purposeful. PSYCHIATRIC: Seems somewhat paranoid or mildly withdrawn; though slowly his conversation was purposeful and direct. ASSESSMENT/PROBLEM LIST: 0. 75-year-old white male - advanced age. 1. Allergies/intolerances see above. 2. Procedural history see above. 3. Family history see above. 4. Hiatal hernia on EGD. 5. Gastroesophageal reflux on EGD. 6. Hemorrhoidal disease. 7. Diverticular disease. 8. Dysphasia - has influence from Parkinson's. 9. Previous carpal tunnel surgeries. 10. Degenerative joint disease - diffuse. 11. Brief smoker. 12. Chronic anxiety. 13. Chronic depression. 14. Decreased libido. 15. Erectile dysfunction. 16. Spinal disk disease. 17. Spinal spondylosis. 18. Chronic back pain. 19. Gait difficulty - multifactorial. 20. Hemochromatosis. 21. Hyperlipidemia. 22. Chronic insomnia. 23. Macular degeneration. 24. Mild memory loss. 25. Parkinson's disease. 26. Periodic leg movement disorder. 27. Chronic tinnitus. 28. Overweight. 29. History of PE with previous knee surgery. 30. History of DVT - with previous knee surgery. 31. Anticoagulation, currently on Xarelto. 32. Chronic constipation. 33. Vitamin D deficiency. 34. Hearing loss. 35. Prostatism. REASON FOR ADMISSION: # Postop left total knee # Gait decline - acute on chronic # Incision - left knee # Edema - left knee # Abrasion - left knee # Postop anemia - mild # Knee pain - postop REHAB COURSE: Will control pain, watch his incision, work with therapy, PT/OT to improve his gait and ambulation. In addition he will have nursing and dietary supervision. Will try to control other problems in the meantime and prevent DVT. HOSPITAL COURSE: The patient received the full complement of care in the swing bed program; nursing home to deal with issues as they arrived and to provide frequent nursing assessments with dietary that made suggestions and he was supplied adequate nutrition. From a primary emphasis he was seen by PT/OT and his gait did improve. He developed significant swelling of the left lower extremity. It seemed to be hematoma related in a diffuse fashion and never went on to truly look like cellulitis; Dr. Drake saw him mid stay and he agreed with that. Decision was made to take him prematurely off the Xarelto and treat with aspirin. I was okay with that as the patient was up and about by that time. His gait improved to a point where he could go home but in somewhat of a still supervised fashion by going to an ex-'s home to have some care. He did not want to follow with home health; but instead wanted to come to outpatient PT arena. He did have a speech evaluation the day of discharge. There were issues related to his Parkinson's and he was given suggestions on how to deal with that and with hopes that he would follow that in outpatient arena also. On the 8th he had a white count of 9 and repeated on the 15th at 12; hemoglobin remained 10.5 to 10.8, normocytic. He had an iron level low at 28 and was given iron. Iron binding capacity was low. Percent sat was only 17. B12 and folate were normal. Remaining chemistries were unremarkable. He had a VQ scan of the left leg that showed no clots when his leg swelled. He had x-rays of the knee that showed the arthroplasty intact and only moderate soft tissue swelling. Again improved, it was elected to follow as an outpatient. DISCHARGE ASSESSMENT/PROBLEM LIST (CHANGED FROM ADMISSION): # POSTOP LEFT KNEE # GAIT DECLINE - ACUTE ON CHRONIC # INCISION LEFT KNEE - HEALING # EDEMA - LEFT KNEE -RATHER EXTENSIVE BUT RESOLVING # ABRASION - LEFT LOWER KNEE - RESOLVING # POSTOP ANEMIA - MILD AND IMPROVING # POSTOP IRON DEFICIENCY - IMPROVING # KNEE PAIN -POSTOP - IMPROVING # PARKISON'S DISEASE WITH FULL RAMIFICATIONS - GAIT, THINKING, SPEECH # SPEECH DIFFICULTIES PLAN: 1. Discharge 2. Medications: a) As admit b) [place] 10, one every four hours as needed #30, no refill c) Those OTC are to be OTC 3. Diet a) Cardiac 4. Activity a) No driving b) Gradually increase as able 5. Wound care - continue what is done in the hospital and previously recommended by Dr. Drake 6. Follow-up a) Dr. Khan in 3 weeks b) Dr. Drake as directed CONDITION: Stable, improved PROGNOSIS: Guarded MTDD
== END 2016-06-06 15:55 | disposition home or self-care (01) | DRG 560 ==
LOC: MEDSURG B 11:38
PROVIDERS: ADMIT Family Medicine; ATTEND Family Medicine
DX: Z47.1 Aftercare following joint replacement surgery (principal); Z96.652 Presence of left artificial knee joint; M96.840 Postprocedural hematoma of a musculoskeletal structure following a musculoskeletal system procedure; D62 Acute posthemorrhagic anemia; J98.11 Atelectasis; R60.0 Localized edema; R26.9 Unspecified abnormalities of gait and mobility; S80.212A Abrasion, left knee, initial encounter; G20 Parkinson's disease; R47.89 Other speech disturbances; R50.9 Fever, unspecified; Z86.711 Personal history of pulmonary embolism; Z86.718 Personal history of other venous thrombosis and embolism; Z79.01 Long term (current) use of anticoagulants; Z79.899 Other long term (current) drug therapy
CPT/HCPCS: 36415; 80048; 82607; 82746; 83540; 83550; 85025; 87070; 87081; 94150; 97802

== ENCOUNTER 2016-06-11 12:14 | Outpatient (CLI) ==
--- NOTE | 2016-06-11 13:47 | DI ---
Examination: Four radiographic images of the left knee. Comparison: 05/30/2016. Reason for study: Total knee arthroplasty. FINDINGS: Operative changes are seen after left total knee arthroplasty with patellar resurfacing. No radiographic evidence of periprosthetic fracture or hardware loosening. The joint spaces are we ll maintained. The previously seen edematous changes in the subcutaneous soft tissues have resolved. Impression: Operative changes after left total knee arthroplasty with patellar resurfacing and no e vidence of hardware complication.
== END 2016-06-11 12:15 | disposition home or self-care (01) ==
LOC: RAD 12:14
PROVIDERS: ATTEND Family Medicine
DX: Z96.652 Presence of left artificial knee joint (principal)

== ENCOUNTER → 2016-06-18 | Outpatient (RCR) ==
[2016-05-27 13:11] VITALS: BMI 34.2
--- NOTE | 2016-06-11 12:13 | RS.BEDDYS ---
Subjective Number of treatment sessions: 1 Date of Evaluation: 06/11/16 Treatment Diagnosis: dysphagia Prior Level of Function.....Patient was independent with: Self Care (Pt lives alone, but receives prn assistance from ex-. Pt was independent with eating and swallowing, however recently made modifications to diet textures due to increased difficulty. ) Current Level of Function: This 75 year old male was referred to speech therapy due to decline in function of swallow. Pt has a hx of PD, impacting swallow function for many years. Recently, pt reported increased swallow difficulty with regular diet textures, causing increased coughing and SOB episodes. Pt also reports fatigue with larger meals and food sticking in the throat. However there are no recent reports of weight loss, malnutrition, or dehydration. COMPUTER PATTERNMAKER noted during evaluation, missing teeth, absent rotary chew, multiple swallows, and slow laryngeal excursion. Pt has mild risk for aspiration or penetration. Current Diet: Regular diet texture and thin liquid consistency. Current Subjective/complaints:: Pt has difficulty swallowing nuts, meat, and dry textures. Pt has multiple episodes of medications sticking in throat. Pt has to eat slower, take smaller bites, and consume smaller meals due to fatigue and SOB. Pt also complains about voice quality and loudness, as well as respiratory support with conversation. Medical History Comments:: PD, depression/anxiety, hiatal hernia, GERD, chronic back pain, insomnia, hx DVT, chronic constipation. Hx Home Medications: Review list to view current medications. Patient's Goals: Pt wants to decrease coughing episodes, and increase respiratory support during speech and swallowing. General Information - General Denture Type: Not Applicable Patient Orientation: Person, Place, Time, Situation Ability to Follow Directions: Good (Requires repeating, some visual cues and modeling.) Is Patient able to Repeat Directions?: Yes Oral Expression Ability: No Impairment - Voice Voice Quality: Breathy, Hoarse, Weak Voice Pitch: Limited Variation, Pitch Breaks Voice Loudness: Mildly Soft/Quiet Oral-Facial Assessment - Face Facial Symmetry: Symmetrical Facial Movement: Controlled - Dental/Labial Mouth Occlusion: Normal Teeth Characteristics: Missing (molars), Broken Teeth Comment: dentition in poor condition. Lip Protrusion: Weak Lip Retraction: Reduced ROM Puff Cheeks: Reduced Strength, Nasal Emission Lips Comment: Mild tremor with increased movements. - Lingual Protrusion: Normal Retraction: Normal Tip Lateralization: Discoordination Repeated Tip Lateralization: Discoordination Tip Elevation: Normal Repeated Tip Elevation: Normal - Palate and Pharynx Soft Palate Description: Normal Color Hard Palate Description: Normal Color Gag Reflex Response: Pt reports no gag reflex. Not observed during evaluation Food Presentation - Solids Food Presented: Regular (Adequate bolus formation. Required three swallows and liquid wash to clear residue in pharynx/larynx area.) Food Presented: Mechanical Soft (Moist texture, no difficulty.) - Liquids Liquid Presented: Thin (Via straw, room temperature mild delay in swallow initiation. Cold temperature WNL swallow response.) - Recommendations: Dysphagia Evaluation Dietary Recommendations: Dysphagia Mechanical Soft Comments:: Pt appears to have decreased ability to utilize adequate pressure in oral cavity as well as demonstrate rotary chew for efficient oral phase. Pharyngeal phase, pt with slow laryngeal excursion and multiple swallows to clear residue. COMPUTER PATTERNMAKER recommends pt to have outpatient speech therapy 1x a week for 60 minutes. Pt to have mechanical soft diet texture with thin liquids for all PO intake. Use of compensatory swallow strategies and safe swallow precautions reviewed with pt to utilize. No overt s/s of aspiration noted during evaluation. Dysphagia Swallow Precautions/Strategies: Sitting Upright (90 deg), Double Swallow, Liquids from Straw, Alternate Liquids/Solids Comments:: For respiration and vocal quality. Pt has 6 seconds vocal duration before fatigue with breathy and hoarse vocal quality. COMPUTER PATTERNMAKER to utilize EMST to increase respiratory support for conversation and swallowing. Vocal exercises to be completed to increase vocal loudness and awareness. Functional Reporting G Codes: Swallowing current CK Goal CJ Severity Impairment Rationale: Pt's use of compensatory swallow strategies and downgrade to mechanical soft diet texture. Short Term Goals Problem: Swallowing Goal #1: Pt to increase efficient rotary chew on 8/10 trials Goal to be met by: 06/25/16 Problem: Swallowing Goal #2: Pt to complete laryngeal exercises with 80% acc. Goal to be met by: 06/25/16 Problem: Respiration sufficiency Goal #3: Pt to complete 10 sets of training with EMST with 50% acc. Goal to be met by: 06/25/16 Problem: Voice quality Goal #4: Pt to improve vocal loudness 70% of conversation Goal to be met by: 06/25/16 Fdc Goals Problem: Swallowing Goal #1: Pt consumes mech soft diet and thin liquids without overt s/s of aspiration Goal to be met by: 07/09/16 Problem: Voice Goal #2: Pt to improve vocal loudness to 85% in multi-stimul environments. Goal to be met by: 07/09/16 Problem: Respiratory coordination Goal #3: Pt to improve expiration with speech from 6 sec to 15 seconds. Goal to be met by: 07/09/16 Plan Duration of Treatment: 4 Weeks Frequency of Treatment: 1x a week Anticipated Discharge Destination: Home
--- NOTE | 2016-06-12 08:46 | RS.OPPTEV2 ---
Date of Note: 06/11/16 Visit #: 1 Date of Evaluation: 06/11/16 Payer Source: MEDICARE Surgery Performed?: Yes (Left TKA) Date of Procedure: 05/24/16 Treatment Diagnosis: Left knee pain, left knee stiffness, s/p Left TKA Prior Level of Function.....Patient was independent with: ADL's, Self Care, Ambulation/Mobility, Community Integration/Access Functional Limitations: Sleep, Self Care, ADL's, Reaching, Pushing, Pulling, Lifting, Carrying, Sitting, Standing, Bending, Squatting, Ambulation, Community Access/Integration Current Subjective/complaints:: Patient reports mild left knee pain. States he is staying with his ex- at this time while he recovers from this TKA procedure. States he has been icing the knee. He has taken his pain medication today, but has it with him. States he fell at home this weekend, due to losing his balance. States he did not hit or land on the left knee. He is using the rolling walker for all mobility. He hopes to be able to drive in about a month, because he wants to go to a coin show that will be close to [place]. Treatment Side (optional): Left Medical History Medical History: Arthritis Medical History Comments:: Parkinson's Disease, depression/anxiety, hiatal hernia, GERD, chronic back pain, insomnia, hx DVT, chronic constipation. Surgical History: Knee Replacement Surgical History Comments:: right TKA a few years ago, Left TKA 05/24/16, bilateral CTS Smoking Status: Former smoker Hx Home Medications: Review list to view current medications. Patient's Goals: His goal is to return to his previous level of function, including driving. Pain Assessment - Pain Description Pain Location: left knee Pain Description: Burning, Aching Current Pain Intensity: 2-3/10 Worst Pain Intensity: 8-9/10 Functional Outcome Measure LE Functional Scale: 18 (18/80=77.5% impairment) - G Codes & Severity Modifier G Codes & Modifier: Mobility current CL. Mobility goal CJ Source of G Code score: LE functional scale Observation - Observation Inspection: During evaluation, Mr. Baumann demonstrates delayed processing of questions. Gait - Gait Pattern Gait Comments: Patient ambulates with a rolling walker. He demonstrates a shuffling gait, with slight decreased stance phase on the left LE. - Left Knee ROM Left Knee Extension: -20 from full extension Left Knee Flexion: 110 (degrees AROM) Knee ROM Limitations: Soft Tissue Tightness, Pain - Right Knee ROM Right Knee Extension: -2 degrees from full extension Right Knee Flexion: 115 (degrees AROM) - Left Knee Strength Left Knee Extension: 4- Good- Left Knee Flexion: 4- Good- - Right Knee Strength Right Knee Extension: 4+ Good + Right Knee Flexion: 4+ Good + Palpation Comments:: Patient reports general tenderness throughout left knee joint. Reports tenderness is not severe. Sensation - Sensation Comments: Currently reports sensation is intact to lower extremities. Reports neuropathy symptoms "come and go". Interventions - Exercise/Activities/Manual Therapy Exercises/Activities: Patient assisted with left knee AROM into flexion and extension. Performed QS, SLR, SAQ and heel slides, all with slight assistance. Demonstrated to patient to use a rolled up blanket or pillow under the ankle/ foot for passive knee extension. Manual Therapy: Na HOME EXERCISE PROGRAM: heel slides, passive knee extension, AP - Charges Total Direct Minutes: 45 mins Total Treatment Time: 45 mins Procedures billed for this date of service:: EVAL medium Assessment Assessment: Patient presents 2 1/2 weeks s/p left TKA. He demonstrates limited left knee flexion and extension. His ambulation requires a rolling walker for safety, as he also has a history of Parkinson's Disease and reports a fall since coming home from the hospital. He is having to stay with his ex- at this time for help with selfcare and ADL's. He is motivated to regain his functional mobility to return to his home, perform daily activities independently, including driving. Patient Education: Education of diagnosis, Body/Joint mechanics, Home Exercise Program, Home Safety Rehab Potential: Good Short Term Goals Goal #1: Left knee Active extension to -5 degrees. Goal to be met by: 06/25/16 Goal #2: Left knee Active flexion to 115 degrees. Goal to be met by: 06/25/16 Goal #3: Left quad strength 4+/5. Goal to be met by: 06/25/16 Goal #4: Pt will consistently clear feet during ambulation with RW in department. Goal to be met by: 06/25/16 Residential Goals Goal #1: Pt knows HEP and to continue ex's to maintain functional status at [place]. Goal to be met by: 07/21/16 Goal #2: Score on LE functional scale less than 39% impairment. Goal to be met by: 07/21/16 Goal #3: Pt amb with AAD independently, with good safety community distances. Goal to be met by: 07/21/16 Goal #4: LLE AROM WFL's to perform all selfcare and ADL's without difficulty. Goal to be met by: 07/21/16 Plan - Treatment to be Provided Procedures: Therapeutic Exercises, Therapeutic Activity, Gait Training, Neuromuscular Rehab, Vestibular Rehab, Patient Education Modalities: Electrical Stimulation, Cryotherapy, Hot Packs - Treatment Plan Frequency: 3 X week Duration: 4 weeks ORDER # VISITS AND/OR THROUGH DATE: 07/21/16 - Treatment Code (1) Knee pain Qualifiers: Laterality: left Chronicity: acute Qualified Description: Acute pain of left knee Qualifier Code(s): (M25.562) Pain in left knee (2) Knee stiffness Qualifiers: Laterality: left Qualified Description: Knee stiffness, left Qualifier Code(s): (M25.662) Stiffness of left knee, not elsewhere classified (3) Aftercare following joint replacement surgery Qualifiers: Joint replacement surgery site: knee Laterality: left Qualified Description: Aftercare following left knee joint replacement surgery Qualifier Code(s): (Z47.1) Aftercare following joint replacement surgery, ( Z96.652) Presence of left artificial knee joint
--- NOTE | 2016-06-12 15:01 | RS.OPPTDN ---
Subjective Date of Note: 06/12/16 Visit #: 2 Date of Evaluation: 06/11/16 Payer Source: MEDICARE Treatment Diagnosis: Left knee pain, left knee stiffness, s/p Left TKA Current Subjective/complaints:: Patient admits he has a little pain today and has pain meds with him to take if it gets too bad. He says that he is using ice at home and performing HEP. Pain Assessment - Pain Description Pain Location: left knee Pain Description: Burning, Aching Current Pain Intensity: 2-3/10 - Treatment Modality: Electrical Stim Unattended Parameters/Method Applied: hivolt 4 large pads @ 120 pk volts x 20 mins to the L knee after therex Patient Position: Supine - Heat/Cryotherapy Treatment: Cryotherapy Interventions - Exercise/Activities/Manual Therapy Exercises/Activities: Patient assisted with left knee AROM into flexion and extension. Heel cord stretching. Performed QS, SLR, SAQ, hip abd/add and heel slides, all with slight assistance. Patellar mobs. Further gentle stretching for flex/ext and ankle over bolster for static stretching. LAQ. Total minutes of Exercise: 26 Manual Therapy: Na HOME EXERCISE PROGRAM: heel slides, passive knee extension, AP - Charges Total Direct Minutes: 26 Total Treatment Time: 46 Procedures billed for this date of service:: cp, estim (un), ex2 Assessment: Mr. Faulkner expressed he had a fall yesterday in which he was taking steps backwards and tripped, but unable to tell me Patient appears to mayra all therex with mild soreness especially with extension stretching. He asks to take pain meds while exercising. Patient shuffles with ambulation related to Parkinsons. He is assisted out of the department with RW with family member. Patient Education: Education of diagnosis, Body/Joint mechanics, Home Exercise Program, Home Safety, Activity Modification, Education of Plan of Care Patient demonstrates compliance with HEP?: Yes Short Term Goals Goal #1: Left knee Active extension to -5 degrees. Goal to be met by: 06/25/16 Goal #2: Left knee Active flexion to 115 degrees. Goal to be met by: 06/25/16 Goal #3: Left quad strength 4+/5. Goal to be met by: 06/25/16 Goal #4: Pt will consistently clear feet during ambulation with RW in department. Goal to be met by: 06/25/16 [facility]dc Goals Goal #1: Pt knows HEP and to continue ex's to maintain functional status at [place]. Goal to be met by: 07/21/16 Goal #2: Score on LE functional scale less than 39% impairment. Goal to be met by: 07/21/16 Goal #3: Pt amb with AAD independently, with good safety community distances. Goal to be met by: 07/21/16 Goal #4: LLE AROM WFL's to perform all selfcare and ADL's without difficulty. Goal to be met by: 07/21/16 Plan PLAN OF CARE EXPIRES ON:: 07/21/16 ORDER # VISITS AND/OR THROUGH DATE: 07/21/16 PLAN: Progress Exercises
--- NOTE | 2016-06-18 12:25 | RS.DYSPHTX ---
Dysphagia Treatment Note Date of Note: 06/18/16 Visit #: 2 Time of Treatment: 11:05 Subjective: Pt alert and cooperative for skilled ST services. Pt had just completed PT, but participated with some fatigue at end of session. Pt reported 1x coughing episode in home environment since initial evaluation. Minimal changes with swallow function noted. Total treatment time: 45 - Short Term Goals Goal #1: Pt to increase efficient rotary chew on 8/10 trials Activity/Accuracy: DEMOLITION HAMMER OPERATOR assessed pt with semi-solid food texture. DEMOLITION HAMMER OPERATOR modeled rotary chew and educated pt prior to PO trials. Pt demonstrated 60% accuracy with efficiency, however reported biting bottom labials. Goal #2: Pt to complete laryngeal exercises with 80% acc. Activity/Accuracy: Goal not addressed this date. Goal #3: Pt to complete 10 sets of training with EMST with 50% acc. Activity/Accuracy: Pt completed 10 sets requring increased break of 8 minutes between trials of five. Pt with 75% accuracy. Pt reported dizziness one time. Goal #4: Pt to improve vocal loudness 70% of conversation Activity/Accuracy: DEMOLITION HAMMER OPERATOR assessed pt in conversation. Pt had fluctuating loudness , which decreased as pt fatigued during session. Next session DEMOLITION HAMMER OPERATOR to increase pt self-awareness and include vocal exercises. - 3Rd Grade Teacher Goals Goal #1: Pt consumes mech soft diet and thin liquids without overt s/s of aspiration Goal #2: Pt to improve vocal loudness to 85% in multi-stimul environments. Goal #3: Pt to improve expiration with speech from 6 sec to 15 seconds. Assessment: DEMOLITION HAMMER OPERATOR assessed pt with EMST device. Pt completed recommended 10 sets with 75% accuracy, however required 8 minute break instead of recommended 1 minute break between 5 rep trials. Pt reported dizziness after first trials. DEMOLITION HAMMER OPERATOR noted pt with increased facial and eye tension. DEMOLITION HAMMER OPERATOR trained pt with releasing tension during breathing exercise. Second set of five reps, pt had less tension and minimal dizziness. - Units Charged Swallowing Therapy: 3 - Plan Frequency of Treatment: 1x a week. Duration of Treatment: 4 Weeks
--- NOTE | 2016-06-18 13:03 | RS.OPPTDN ---
Subjective Date of Note: 06/18/16 Visit #: 3 Date of Evaluation: 06/11/16 Payer Source: MEDICARE Treatment Diagnosis: Left knee pain, left knee stiffness, s/p Left TKA Current Subjective/complaints:: Patient says he forgot to take his pain meds today. He says he feels he is getting around well. He says he has some burning underneath the patella. Pain Assessment - Pain Description Pain Location: left knee Pain Description: Burning, Aching Current Pain Intensity: 2-3/10 - Treatment Modality: Electrical Stim Unattended Parameters/Method Applied: L knee hivolt 4 large pads x 20 mins after therex ( 150-175 pk volts ) Patient Position: Supine - Heat/Cryotherapy Treatment: Cryotherapy (ant/post knee) Interventions - Exercise/Activities/Manual Therapy Exercises/Activities: Patient assisted with left knee AROM into flexion and extension. Heel cord stretching. Performed QS, pillow squeezes, SLR, SAQ 1 1/2# , hip abd/add and heel slides, all with slight assistance. Patellar mobs. Further gentle stretching for flex/ext and ankle over bolster for static stretching. LAQ. Ham curls. Total minutes of Exercise: 28 Manual Therapy: Na HOME EXERCISE PROGRAM: heel slides, passive knee extension, AP - Charges Total Direct Minutes: 28 Total Treatment Time: 48 Procedures billed for this date of service:: cp, estim (un), ex2 Assessment: Patient mayra passive flexion stretches well as he demonstrates ~1 degrees. Extension is limited and does reproduce pain with stretching. He demo fair safety with gait and transfers. Patient Education: Education of diagnosis, Body/Joint mechanics, Home Exercise Program, Home Safety, Activity Modification, Education of Plan of Care Patient demonstrates compliance with HEP?: Yes Short Term Goals Goal #1: Left knee Active extension to -5 degrees. Goal to be met by: 06/25/16 Goal #2: Left knee Active flexion to 115 degrees. Goal to be met by: 06/25/16 Goal #3: Left quad strength 4+/5. Goal to be met by: 06/25/16 Goal #4: Pt will consistently clear feet during ambulation with RW in department. Goal to be met by: 06/25/16 Nursing Home Goals Goal #1: Pt knows HEP and to continue ex's to maintain functional status at [place]. Goal to be met by: 07/21/16 Goal #2: Score on LE functional scale less than 39% impairment. Goal to be met by: 07/21/16 Goal #3: Pt amb with AAD independently, with good safety community distances. Goal to be met by: 07/21/16 Goal #4: LLE AROM WFL's to perform all selfcare and ADL's without difficulty. Goal to be met by: 07/21/16 Plan PLAN OF CARE EXPIRES ON:: 07/21/16 ORDER # VISITS AND/OR THROUGH DATE: 07/21/16 PLAN: Progress Exercises
== END ==
PROVIDERS: ATTEND Family Medicine
DX: R26.9 Unspecified abnormalities of gait and mobility (principal); R13.10 Dysphagia, unspecified; Z96.652 Presence of left artificial knee joint

== ENCOUNTER → 2016-07-19 | Outpatient (RCR) ==
--- NOTE | 2016-06-20 14:32 | RS.OPPTDN ---
Subjective Date of Note: 06/20/16 Visit #: 4 Date of Evaluation: 01/23/15 Payer Source: MEDICARE Treatment Diagnosis: dysphagia Current Subjective/complaints:: Patient says that he needs to have some dental work done and needs to save his money and discontinue speech therapy. He says he is having mouth ulcers and needs to have something done to correct this. He says his knee is doing well. Reports improved mobility and swelling. Pain Assessment - Pain Description Pain Location: left knee Current Pain Intensity: 2-3/10 - Treatment Modality: Electrical Stim Unattended Parameters/Method Applied: hivolt 4 large pads @ 240-275 pk volts x 20 mins Treatment Area: L knee Patient Position: Supine - Heat/Cryotherapy Treatment: Cryotherapy Interventions - Exercise/Activities/Manual Therapy Exercises/Activities: Patient assisted with left knee AROM into flexion and extension. Heel cord stretching. Performed QS, pillow squeezes, SLR, SAQ 1 1/2# , hip abd/add and heel slides, all with slight assistance. Green tband for ankle DF. Patellar mobs. Further stretching for flex/ext and ankle over bolster for static stretching. LAQ. hip flexion, heel raises, Ham curls. Total minutes of Exercise: 28 Manual Therapy: Na HOME EXERCISE PROGRAM: SLR, hook-lying LE lift, isometric hip adduction, bridging, and toe-ups/ankle df in sitting. Standing at rail or counter, toe-ups , mini-squats, unilateral standing, side-stepping, grapevine. - Charges Total Direct Minutes: 28 Total Treatment Time: 48 Procedures billed for this date of service:: cp, estim (un), ex2 Assessment: Patient demo Active flexion to 119 degrees, still limited with ext. Ext improves with stretching. Patient wishes to discontinue CELL CHANGER. He will have a follow up with MD 06/28/16. Patient Education: Education of diagnosis, Body/Joint mechanics, Home Exercise Program, Home Safety, Activity Modification, Education of Plan of Care Patient demonstrates compliance with HEP?: Yes Short Term Goals Goal #1: Bilateral hip strength improved to 4+/5. Goal to be met by: 06/25/16 Goal #2: Bilateral ankle strength improved to 4+/5. Goal to be met by: 06/25/16 Goal #3: Trunk strength improved to 4+/5 Goal to be met by: 06/25/16 Goal #4: Static standing balance improved to good. Goal to be met by: 06/25/16 Lay Out Drafter Goals Goal #1: Patient independent with HEP. Goal to be met by: 07/21/16 Goal #2: Score on Dynamic Gait index improved to 19/24. Goal to be met by: 07/21/16 Goal #3: Patient to report no falls or loss of balance. Goal to be met by: 07/21/16 Goal #4: Patient to amb. community distances with good safety. Goal to be met by: 07/21/16 Plan PLAN OF CARE EXPIRES ON:: 07/21/16 ORDER # VISITS AND/OR THROUGH DATE: 07/21/16 PLAN: Progress Exercises
--- NOTE | 2016-06-25 14:06 | RS.OPPTDN ---
Subjective Date of Note: 06/25/16 Visit #: 5 Date of Evaluation: 01/23/15 Payer Source: MEDICARE Treatment Diagnosis: dysphagia Current Subjective/complaints:: Patient says that he had taken a pain pill this morning, but did not prior to PT appt. Says he has a burning pain under the patella. Reports he has been walking with his SC and doing well. Pain Assessment - Pain Description Pain Location: left knee Current Pain Intensity: more today because he had forgotten to take his pain pill prior to PT appt - Heat/Cryotherapy Treatment: Cryotherapy (15 mins to the L knee after therex) Interventions - Exercise/Activities/Manual Therapy Exercises/Activities: Patient assisted with left knee AROM into flexion and extension. Heel cord stretching. Performed QS, pillow squeezes, SLR, SAQ 2#, hip abd/add and heel slides, 2/10. Hooklying hip abd with green tband. Green tband for ankle DF. Patellar mobs. Further stretching for flex/ext and ankle over bolster for static stretching. LAQ. hip flexion, heel raises, Ham curls. Ended with more stretching for extension. Stationary bike x 5 mins cues for for /retro. Total minutes of Exercise: 35 Manual Therapy: Na HOME EXERCISE PROGRAM: SLR, hook-lying LE lift, isometric hip adduction, bridging, and toe-ups/ankle df in sitting. Standing at rail or counter, toe-ups , mini-squats, unilateral standing, side-stepping, grapevine. - Charges Total Direct Minutes: 35 Total Treatment Time: 50 Procedures billed for this date of service:: cp, ex2 Assessment: Patient demonstrates normal range knee flexion and improved extension, although still limited and sore with stretching. He is now ambulating with SC with good bal. Patient Education: Education of diagnosis, Body/Joint mechanics, Home Exercise Program, Home Safety, Activity Modification, Education of Plan of Care Patient demonstrates compliance with HEP?: Yes Short Term Goals Goal #1: Bilateral hip strength improved to 4+/5. Goal to be met by: 06/25/16 Goal #2: Bilateral ankle strength improved to 4+/5. Goal to be met by: 06/25/16 Goal #3: Trunk strength improved to 4+/5 Goal to be met by: 06/25/16 Goal #4: Static standing balance improved to good. Goal to be met by: 06/25/16 Reservation Clerk Goals Goal #1: Patient independent with HEP. Goal to be met by: 07/21/16 Goal #2: Score on Dynamic Gait index improved to 19/24. Goal to be met by: 07/21/16 Goal #3: Patient to report no falls or loss of balance. Goal to be met by: 07/21/16 Goal #4: Patient to amb. community distances with good safety. Goal to be met by: 07/21/16 Plan PLAN OF CARE EXPIRES ON:: 07/21/16 ORDER # VISITS AND/OR THROUGH DATE: 07/21/16 PLAN: Progress Exercises
--- NOTE | 2016-06-28 15:38 | RS.DYSPHTX ---
Dysphagia Treatment Note Date of Note: 06/28/16 Visit #: 3 Time of Treatment: 14:15 Subjective: Pt alert and cooperative for skilled ST. Pt reported concerns with ST regarding finances and budget. URINALYSIS TECHNICIAN reassured pt with insurance and therapy. Pt stated he wanted to continue skilled ST. URINALYSIS TECHNICIAN questioned pt about dentition, which pt is in the process of locating a dentist for removal of teeth and placement of dentures or implants. URINALYSIS TECHNICIAN educated pt about current chewing behavior and provided strategies. Pt reported no new episodes of couhging or choking with PO intake. Total treatment time: 45 - Short Term Goals Goal #1: Pt to increase efficient rotary chew on 8/10 trials Activity/Accuracy: Goal not targeted with PO intake. URINALYSIS TECHNICIAN modeled efficient and coordinated chew for proper mastication. Pt currently consuming foods with limited mastication due to dentition at this time. Goal #2: Pt to complete laryngeal exercises with 80% acc. Activity/Accuracy: Goal not targeted this date. Goal #3: Pt to complete 10 sets of training with EMST with 50% acc. Activity/Accuracy: Pt completed 20 repetitions of 4 sets. Pt with improved coordination and no reports of dizziness this date. Goal #4: Pt to improve vocal loudness 70% of conversation Activity/Accuracy: URINALYSIS TECHNICIAN monitored vocal loudness during verbal assessment. Pt required minimal cues to increase loudness. URINALYSIS TECHNICIAN educated pt about respiration training and vocal changes. - Senior Care Goals Goal #1: Pt consumes mech soft diet and thin liquids without overt s/s of aspiration Goal #2: Pt to improve vocal loudness to 85% in multi-stimul environments. Goal #3: Pt to improve expiration with speech from 6 sec to 15 seconds. Assessment: URINALYSIS TECHNICIAN assessed pt with independent use of EMST. Pt improved from 2 sets to four sets this date and required less timed breaks between sets. Pt demonstrated accuracy for program to be completed in the home environment. URINALYSIS TECHNICIAN sent pt home with written instructions and EMST device to complete three days a week. - Units Charged Swallowing Therapy: 3 - Plan Frequency of Treatment: 1x a week Duration of Treatment: 4 Weeks
--- NOTE | 2016-06-28 16:32 | RS.OPPTDN ---
Subjective Date of Note: 06/28/16 Visit #: 6 Date of Evaluation: 01/23/15 Payer Source: MEDICARE Treatment Diagnosis: dysphagia Current Subjective/complaints:: Patient says he is doing well with using his cane. He says that he is performing HEP. Reports he has taken pain meds 45 mins before PT appt. Says he has no pain at present. Pain Assessment - Pain Description Pain Location: left knee Current Pain Intensity: None currently. Has taken pain meds. - Heat/Cryotherapy Treatment: Cryotherapy (20 mins to the L knee in supine after therex) Interventions - Exercise/Activities/Manual Therapy Exercises/Activities: Patient began with stationary bike x 10 mins. He assisted with left knee AROM into flexion and extension. Heel cord stretching. Performed QS, pillow squeezes, SLR, SAQ 2 04/22#, hip abd/add and heel slides, . Hooklying hip abd with green tband. Green tband for ankle DF. Patellar mobs. Further stretching for flex/ext and ankle over bolster for static stretching. LAQ. hip flexion, heel raises, Ham curls. Total minutes of Exercise: 45 Manual Therapy: Na HOME EXERCISE PROGRAM: SLR, hook-lying LE lift, isometric hip adduction, bridging, and toe-ups/ankle df in sitting. Standing at rail or counter, toe-ups , mini-squats, unilateral standing, side-stepping, grapevine. - Charges Total Direct Minutes: 45 Total Treatment Time: 45 Procedures billed for this date of service:: ex3, cp Assessment: Patient ambulating well with SC, maintaing good bal and speed. Patient shows improved knee extension to -4 today and flexion to 123 degrees with therex and at 90/90 position. Patient Education: Education of diagnosis, Body/Joint mechanics, Home Exercise Program, Home Safety, Activity Modification, Education of Plan of Care Patient demonstrates compliance with HEP?: Yes Short Term Goals Goal #1: Bilateral hip strength improved to 4+/5. Goal to be met by: 06/25/16 Progress towards Goal:: Progressing Goal #2: Bilateral ankle strength improved to 4+/5. Goal to be met by: 06/25/16 Progress towards Goal:: Progressing Goal #3: Trunk strength improved to 4+/5 Goal to be met by: 06/25/16 Progress towards Goal:: Progressing Goal #4: Static standing balance improved to good. Goal to be met by: 06/25/16 Progress towards Goal:: Progressing Electric Motor Assembler And Tester Goals Goal #1: Patient independent with HEP. Goal to be met by: 07/21/16 Progress towards goal: Progressing Goal #2: Score on Dynamic Gait index improved to 19/24. Goal to be met by: 07/21/16 Goal #3: Patient to report no falls or loss of balance. Goal to be met by: 07/21/16 Goal #4: Patient to amb. community distances with good safety. Goal to be met by: 07/21/16 Plan PLAN OF CARE EXPIRES ON:: 07/21/16 ORDER # VISITS AND/OR THROUGH DATE: 07/21/16 PLAN: Progress Exercises
--- NOTE | 2016-07-01 16:17 | RS.OPPTDN ---
Subjective Date of Note: 07/01/16 Visit #: 7 Date of Evaluation: 01/23/15 Payer Source: MEDICARE Treatment Diagnosis: dysphagia Current Subjective/complaints:: Patient says his MD appt. went well. He says he will continue 3 sessions to finish out current order. Reports he is taking pain meds only once daily. States his pain level is low, but he has stiffness at nighttime. States he is walking with his cane and intermittently independent at home. Pain Assessment - Pain Description Pain Location: left knee Current Pain Intensity: None currently. Has taken pain meds. - Heat/Cryotherapy Treatment: Cryotherapy (20 mins to L knee in supine after therex) Interventions - Exercise/Activities/Manual Therapy Exercises/Activities: Patient began with stationary bike x 10 mins. He assisted with left knee AROM into flexion and extension. Heel cord stretching. Performed QS, pillow squeezes, SLR, SAQ 2 04/22#, hip abd/add and heel slides, . Hooklying hip abd with green tband. Green tband for ankle DF. Patellar mobs. Further stretching for flex/ext and ankle over bolster for static stretching. LAQ. hip flexion, heel raises, Ham curls. Total minutes of Exercise: 38 Manual Therapy: Na HOME EXERCISE PROGRAM: SLR, hook-lying LE lift, isometric hip adduction, bridging, and toe-ups/ankle df in sitting. Standing at rail or counter, toe-ups , mini-squats, unilateral standing, side-stepping, grapevine. - Charges Total Direct Minutes: 38 Total Treatment Time: 58 Procedures billed for this date of service:: cp, ex3 Assessment: Patient progressing with exercise well, demonstrating improved knee extension and ambulating in the department and down hallway without his cane. Patient Education: Education of diagnosis, Body/Joint mechanics, Home Exercise Program, Home Safety, Activity Modification, Education of Plan of Care Patient demonstrates compliance with HEP?: Yes Short Term Goals Goal #1: Bilateral hip strength improved to 4+/5. Goal to be met by: 06/25/16 Progress towards Goal:: Progressing Goal #2: Bilateral ankle strength improved to 4+/5. Goal to be met by: 06/25/16 Progress towards Goal:: Progressing Goal #3: Trunk strength improved to 4+/5 Goal to be met by: 06/25/16 Progress towards Goal:: Progressing Goal #4: Static standing balance improved to good. Goal to be met by: 06/25/16 Progress towards Goal:: Progressing Head Mechanic Goals Goal #1: Patient independent with HEP. Goal to be met by: 07/21/16 Progress towards goal: Progressing Goal #2: Score on Dynamic Gait index improved to 19/24. Goal to be met by: 07/21/16 Goal #3: Patient to report no falls or loss of balance. Goal to be met by: 07/21/16 Goal #4: Patient to amb. community distances with good safety. Goal to be met by: 07/21/16 Plan PLAN OF CARE EXPIRES ON:: 07/21/16 ORDER # VISITS AND/OR THROUGH DATE: 07/21/16 PLAN: Progress Exercises
--- NOTE | 2016-07-04 13:00 | RS.OPPTDN ---
Subjective Date of Note: 07/04/16 Visit #: 9 Date of Evaluation: 01/23/15 Payer Source: MEDICARE Treatment Diagnosis: dysphagia Current Subjective/complaints:: Patient says he drove today for the 2nd time this week. Says he does well and avoids taking pain meds prior to driving. States he is getting around well and has no trouble with driving other than being slow to get in/out. Pain Assessment - Pain Description Pain Location: left knee Current Pain Intensity: No pain meds, but says he is fine until it's being pushed on - Heat/Cryotherapy Treatment: Cryotherapy (L anterior/posterior knee in extension position ) Interventions - Exercise/Activities/Manual Therapy Exercises/Activities: Patient began with stationary bike x 10 mins. He assisted with left knee AROM into flexion and extension and stretching for knee extension. Heel cord stretching. Performed QS, Green tband for hooklying hip abd/add, SLR, SAQ 3#, heel slides, 2/10. Green tband for ankle DF. Patellar mobs. Further stretching for flex/ext and ankle over bolster for static stretching. LAQ. hip flexion, heel raises, Ham curls. Total minutes of Exercise: 38 Manual Therapy: Na HOME EXERCISE PROGRAM: SLR, hook-lying LE lift, isometric hip adduction, bridging, and toe-ups/ankle df in sitting. Standing at rail or counter, toe-ups , mini-squats, unilateral standing, side-stepping, grapevine. - Charges Total Direct Minutes: 38 Total Treatment Time: 53 Procedures billed for this date of service:: cp, ex3 Assessment: Patient now driving and not having difficulty except for slow to get in/out. He has resumed good walking speed and at times ambulates without his cane (holding it in the air). He has trouble mayra extension stretching, but is showing improvement with range. Patient Education: Education of diagnosis, Body/Joint mechanics, Home Exercise Program, Home Safety, Activity Modification, Education of Plan of Care Patient demonstrates compliance with HEP?: Yes (needs encouragement to walk and HEP) Short Term Goals Goal #1: Bilateral hip strength improved to 4+/5. Goal to be met by: 06/25/16 Progress towards Goal:: Progressing Goal #2: Bilateral ankle strength improved to 4+/5. Goal to be met by: 06/25/16 Progress towards Goal:: Progressing Goal #3: Trunk strength improved to 4+/5 Goal to be met by: 06/25/16 Progress towards Goal:: Progressing Goal #4: Static standing balance improved to good. Goal to be met by: 06/25/16 Progress towards Goal:: Progressing Snf Goals Goal #1: Patient independent with HEP. Goal to be met by: 07/21/16 Progress towards goal: Progressing Goal #2: Score on Dynamic Gait index improved to 19/24. Goal to be met by: 07/21/16 Goal #3: Patient to report no falls or loss of balance. Goal to be met by: 07/21/16 Goal #4: Patient to amb. community distances with good safety. Goal to be met by: 07/21/16 Plan PLAN OF CARE EXPIRES ON:: 07/21/16 ORDER # VISITS AND/OR THROUGH DATE: 07/21/16 PLAN: Progress Exercises
--- NOTE | 2016-07-09 14:31 | RS.OPPTDN ---
Subjective Date of Note: 07/09/16 Visit #: 9 Date of Evaluation: 01/23/15 Payer Source: MEDICARE Treatment Diagnosis: dysphagia Current Subjective/complaints:: Patient says he has taken 2 ibuprofens prior to coming in today. Says he continues to drive to PT and therefore does not take the pain pills (oxycodone). He says he walked a lot at [facility] over the weekend and c/o general fatigue. Pain Assessment - Pain Description Pain Location: L lateral knee today Current Pain Intensity: No pain meds, but says he is fine until it's being pushed on - Heat/Cryotherapy Treatment: Cryotherapy (15 mins to the L knee (lateral/anterior/posterior) AFTER therex in extension) Interventions - Exercise/Activities/Manual Therapy Exercises/Activities: Patient began with stationary bike x 6 mins for/retro. Discontinued early due to having more labored breathing. Continued stretching for knee extension. Heel cord stretching. Performed QS, Green tband for hooklying hip abd/add, SLR, SAQ 4#, heel slides, 2/10. Green tband for ankle DF 2/10, green tband for ham curls 1x10. Further stretching for flex/ext and ankle over bolster for static stretching. LAQ. hip flexion, heel raises, Ham curls. Total minutes of Exercise: 40 Manual Therapy: Na HOME EXERCISE PROGRAM: SLR, hook-lying LE lift, isometric hip adduction, bridging, and toe-ups/ankle df in sitting. Standing at rail or counter, toe-ups , mini-squats, unilateral standing, side-stepping, grapevine. - Charges Total Direct Minutes: 40 Total Treatment Time: 55 Procedures billed for this date of service:: cp, ex3 Assessment: Patient excelling well with mobility, demonstrating full flexion to the L knee and -3 to 4 currently, 0 with stretching. He does stagger a few times when talking and gait into the department. Balance is affected slightly with distraction or multiple tasks due to PD. Patient Education: Education of diagnosis, Body/Joint mechanics, Home Exercise Program, Home Safety, Activity Modification, Education of Plan of Care Patient demonstrates compliance with HEP?: Yes Short Term Goals Goal #1: Bilateral hip strength improved to 4+/5. Goal to be met by: 06/25/16 Progress towards Goal:: Met Goal #2: Bilateral ankle strength improved to 4+/5. Goal to be met by: 06/25/16 Progress towards Goal:: Met Goal #3: Trunk strength improved to 4+/5 Goal to be met by: 06/25/16 Progress towards Goal:: Progressing Goal #4: Static standing balance improved to good. Goal to be met by: 06/25/16 Progress towards Goal:: Met Prison Goals Goal #1: Patient independent with HEP. Goal to be met by: 07/21/16 Progress towards goal: Progressing Goal #2: Score on Dynamic Gait index improved to 19/24. Goal to be met by: 07/21/16 Goal #3: Patient to report no falls or loss of balance. Goal to be met by: 07/21/16 Progress towards goal: Progressing Goal #4: Patient to amb. community distances with good safety. Goal to be met by: 07/21/16 Plan PLAN OF CARE EXPIRES ON:: 07/21/16 ORDER # VISITS AND/OR THROUGH DATE: 07/21/16 PLAN: Progress Exercises (Patient wishes to discontinue after completing this week's sessions.)
--- NOTE | 2016-07-12 16:07 | RS.OPPTDN ---
Subjective Date of Note: 07/12/16 Visit #: 10 Date of Evaluation: 01/23/15 Payer Source: MEDICARE Treatment Diagnosis: L TKR Current Subjective/complaints:: Patient says he is doing well at home and wants today to be his final PT visit. Says he will continue HEART SURGEON therapy a few more sessions. States he has some breathing difficulties with laughing hard or bending over. Reports he had forgotten to take pain meds, but did drive today. Continues to use SC at home. Pain Assessment - Pain Description Pain Location: L lateral knee today Current Pain Intensity: No pain meds, but says he is fine until it's being pushed on - Heat/Cryotherapy Treatment: Cryotherapy (20 mins to ant/pos/lateral L knee after therex supine) Interventions - Exercise/Activities/Manual Therapy Exercises/Activities: Patient began with passive stretching mainly for L knee extension and heel cords. Performed QS, Green tband for hooklying hip abd/add , SLR, SAQ 4#, heel slides, 2/10. Green tband for ankle DF 2/10, green tband for ham curls 1x10. Green tband for hip abd/add in supine. Further stretching for flex/ext and ankle over bolster for static stretching. LAQ. hip flexion with 2 1/2#, marching in sitting and standing, Ham curls. Total minutes of Exercise: 40 Manual Therapy: Na HOME EXERCISE PROGRAM: SLR, hook-lying LE lift, isometric hip adduction, bridging, and toe-ups/ankle df in sitting. Standing at rail or counter, toe-ups , mini-squats, unilateral standing, side-stepping, grapevine. - Objective Findings Observations,measurements,etc.: LE Functional Score: 37/80 or 51% - Charges Total Direct Minutes: 40 Total Treatment Time: 40 Procedures billed for this date of service:: ex3 Assessment: Patient has improved with strength and mobility to the L knee. He has full flexion actively and limited by ~3-4 degrees extension. He has improved by one level per LE Functional Scale and he self discharged as he he wants today to be his final appt. Patient Education: Education of diagnosis, Body/Joint mechanics, Home Exercise Program, Home Safety, Activity Modification, Education of Plan of Care Comments: Needs to be more consistent with HEP Short Term Goals Goal #1: Bilateral hip strength improved to 4+/5. Goal to be met by: 06/25/16 Progress towards Goal:: Met Goal #2: Bilateral ankle strength improved to 4+/5. Goal to be met by: 06/25/16 Progress towards Goal:: Met Goal #3: Trunk strength improved to 4+/5 Goal to be met by: 06/25/16 Progress towards Goal:: Progressing Goal #4: Static standing balance improved to good. Goal to be met by: 06/25/16 Progress towards Goal:: Met Press Helper Goals Goal #1: Patient independent with HEP. Goal to be met by: 07/21/16 Progress towards goal: Progressing Goal #2: Score on Dynamic Gait index improved to 19/24. Goal to be met by: 07/21/16 Progress towards goal: Progressing Goal #3: Patient to report no falls or loss of balance. Goal to be met by: 07/21/16 Progress towards goal: Progressing Goal #4: Patient to amb. community distances with good safety. Goal to be met by: 07/21/16 Plan PLAN OF CARE EXPIRES ON:: 07/21/16 ORDER # VISITS AND/OR THROUGH DATE: 07/21/16 PLAN: Plan for Discharge
--- NOTE | 2016-07-16 11:47 | RS.DYSPHTX ---
Dysphagia Treatment Note Date of Note: 07/16/16 Visit #: 5 Time of Treatment: 11:00 Subjective: Pt alert and cooperative for skilled ST services. Pt brought EMST for continued training. Pt reported no new concerns with swallow function. No reports of aspiration or coughing episodes with food texture. RUBBER PRINTING MACHINE OPERATOR educated pt with dentition and dental appointment for dentures. Pt agreed with RUBBER PRINTING MACHINE OPERATOR recommendations. Pt meeting all goals and ready for discharge at next session. Total treatment time: 30 - Short Term Goals Goal #1: Pt to increase efficient rotary chew on 8/10 trials Activity/Accuracy: Pt with 80% accuracy, demonstrates compensation due to dentition. Goal #2: Pt to complete laryngeal exercises with 80% acc. Activity/Accuracy: Pt with 80% accuracy. Improved breath support with sustaining vowel sounds. Goal #3: Pt to complete 10 sets of training with EMST with 50% acc. Activity/Accuracy: Pt completes 25 repetitions over five sets independently. RUBBER PRINTING MACHINE OPERATOR increased resistance this date due to progress. Goal #4: Pt to improve vocal loudness 70% of conversation Activity/Accuracy: RUBBER PRINTING MACHINE OPERATOR noted increased loudness and breath support in conversation. Subjective measurement from RUBBER PRINTING MACHINE OPERATOR. - Cut Off Sawyer Goals Goal #1: Pt consumes [facility] soft diet and thin liquids without overt s/s of aspiration Goal #2: Pt to improve vocal loudness to 85% in multi-stimul environments. Goal #3: Pt to improve expiration with speech from 6 sec to 15 seconds. Assessment: RUBBER PRINTING MACHINE OPERATOR assessed pt with EMST. RUBBER PRINTING MACHINE OPERATOR increased resistance to level 30 on device. Pt completed recommended sets with increased difficulty, demonstrating strategic training with diaphragm. - Units Charged Swallowing Therapy: 2 - Plan Frequency of Treatment: 2x a week, due to discharge at next session. Planned for end of this week. Duration of Treatment: 1 Week (Last treatment, discharge, next session.)
--- NOTE | 2016-07-19 15:47 | RS.OPPTDC ---
Date of Discharge: 07/12/16 Date of Evaluation: 01/23/15 Treatment Diagnosis: L TKR Current Complaints/Gains: Patient is happy with the progress he has made. He states he is driving without difficulty. He is able to ascend/descend 3 stairs at home and takes pain medication (Ibuprofen ) periodically. Functional Outcome Measure LE Functional Scale: 37 (37/80=51%) - G Codes & Severity Modifier G Codes & Modifier: Mobility D/C CK. Mobility goal CJ Source of G Code score: LE functional scale Interventions - Exercise/Activities/Manual Therapy Exercises/Activities: NA Manual Therapy: NA HOME EXERCISE PROGRAM: SLR, hook-lying LE lift, isometric hip adduction, bridging, and toe-ups/ankle df in sitting. Standing at rail or counter, toe-ups , mini-squats, unilateral standing, side-stepping, grapevine. - Objective Findings Observations,measurements,etc.: Patient demonstrates -3 to 124 degrees AROM. Demonstrates minimal swelling and improved strength. Ambulates with a straight cane with slight intermittent unsteadiness. - Charges Total Direct Minutes: NA Total Treatment Time: NA Procedures billed for this date of service:: NA Assessment Assessment: Patient reports and demonstrates improved functional left AROM. He is now able to drive and able to go up and down stairs. He has progressed well with AROM and ambulation. Some of his gait difficulties are related to his Parkinson's diagnosis. Short Term Goals Goal #1: Left knee active extension to -5 degrees. Goal to be met by: 06/25/16 Progress towards Goal:: Met Goal #2: Left knee active flexion to 115 degrees. Goal to be met by: 06/25/16 Progress towards Goal:: Met Goal #3: Left quad strength 4+/5. Goal to be met by: 06/25/16 Progress towards Goal:: Met Goal #4: Pt will consistently clear feet during amb. w RW in department. Goal to be met by: 06/25/16 Progress towards Goal:: Met Art Museum Aide Goals Goal #1: Pt knows HEP and to continue ex's to maintain functional status at AR. Goal to be met by: 07/21/16 Progress towards goal: Met Goal #2: Score on LE functional scale less than 39% impairment. Goal to be met by: 07/21/16 Progress towards goal: Met Goal #3: Pt amb. w/ AAD independently w/ good safety community distances. Goal to be met by: 07/21/16 Progress towards goal: Met Goal #4: LLE AROM WFL's to perform all selfcare & ADLs' w/o difficulty. Goal to be met by: 07/21/16 Progress towards goal: Partially Met Comments: Still needs some help with ADL's. Plan Reason for Discharge:: No Further Skilled Therapy Indicated
--- NOTE | 2016-07-23 12:28 | RS.DYSPHDC ---
Subjective Date of Discharge: 07/18/16 Date of Evaluation: 06/11/16 Duration of Therapy: 5 weeks Number of sessions: 4 Functional Reporting G Codes: Initial evaluation CK, Goal CJ, and discharge CJ Severity Impairment Rationale: Pt discharged with CJ due to mechanical soft diet texture and thin liquids, as well as compromised dentition affecting mastication. Short Term Goals Problem: Oral phase efficiency Goal #1: Pt to increase efficient rotary chew on 8/10 trials Goal to be met by: 07/19/16 Progress Towards Goal: Met Comments:: Dentition still affects rotarty chew to reach 100% accuracy. Problem: Vocal ability and swallowing Goal #2: Pt to complete laryngeal exercises with 80% acc. Goal to be met by: 07/19/16 Progress Towards Goal: Met Problem: Vocal loudness, respiratory support, swallow safety Goal #3: Pt to complete 10 sets of training with EMST with 50% acc. Goal to be met by: 07/19/16 Progress Towards Goal: Met Comments:: Pt completes 25 sets 3x a week independently. Goal #4: Pt to improve vocal loudness 70% of conversation Goal to be met by: 07/19/16 Progress Towards Goal: Met Comments:: Pt with adequate loudness 85% of conversation. Extrusion Die Template Maker Goals Problem: Swallowing Goal #1: Pt consumes mech soft diet and thin liquids without overt s/s of aspiration Goal to be met by: 07/19/16 Progress towards goal: Partially Met Comments:: Pt reports inconsistent coughing with thin liquids Problem: Vocal ability Goal #2: Pt to improve vocal loudness to 85% in multi-stimul environments. Goal to be met by: 07/19/16 Progress towards goal: Met Comments:: Pt with 85% accuracy. Problem: Respiratory support for conversation and ADLs Goal #3: Pt to improve expiration with speech from 6 sec to 15 seconds. Goal to be met by: 07/19/16 Progress towards goal: Met Comments:: Pt with 15 seconds sustained vocalizations. Reason for Discharge Reason for Discharge/Current Status:: Pt met all goals and partially met one goal. Pt reports coughing occasionally on thin liquids, however pt never demonstrated overt s/s of aspiration with MATHEMATICAL SCIENCES PROFESSOR. Pt currently completes EMST sets in home environment with 100% accuracy independently, which has improved breath support and vocal loudness. Pt compensates for mastication difficulty with mechanical soft diet texture. Pt has compromised dentition, however MATHEMATICAL SCIENCES PROFESSOR recommends dentist appointment for dentures to increase efficiency with mastication and increase food texture tolerance.
== END ==
PROVIDERS: ATTEND Family Medicine
DX: R26.9 Unspecified abnormalities of gait and mobility (principal); R13.10 Dysphagia, unspecified; Z96.652 Presence of left artificial knee joint; Z74.09 Other reduced mobility

== ENCOUNTER 2017-01-13 12:50 | Outpatient (CLI) | END 2017-01-13 12:51 | disposition home or self-care (01) | LOC: CAR 12:50 | PROVIDERS: ATTEND Family Medicine | DX: R06.02 Shortness of breath (principal) ==

== ENCOUNTER 2017-02-19 10:59 | Outpatient (RCR) ==
--- NOTE | 2017-02-24 15:17 | RS.OPPTDN ---
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 He says he thinks he landed on the L hip/buttocks. Reports a mailman picked him up, but did not seek medical attention. He reports soreness to his L side and back. Reports using ice on his ribs. Pain Assessment - Pain Description Pain Location: lumbar spine and L side of trunk Current Pain Intensity: elevated due to fall and colder, wet weather - Heat/Cryotherapy Treatment: Hot Pack (mid to low back in supine x 20 mins) Balance System Training - Level 1 Postural Stability/Symmetry #1 Reps: 2 - Level 2 Dynamic Weight Shifting #1 Training Mode: Limits of Stability Skill Level (1-3): easy and medium Platform Stability Level (1-12): flat/static Time: 1.5 mins x 3 - Level 3 Reactive Postural Control #1 Activity: MAZE CONTROL Platform Stability Level (1-12): flat/static Time: 1min x 3 Interventions - Exercise/Activities/Manual Therapy Exercises/Activities: HS, SKTC, and piriformis stretching, multiple reps. Wand for overhead flexion with isometric hip add, core strengthening, multiple reps. Blue theraband for resistive UE pulldowns with isometric hip add, 2s/10reps each. Isometric hip add and isometric hip flexion. Alt hip flexion in hook- lying. In sitting, green theraband for scapular retraction 3s/10reps. Unilateral standing. Side-step marching and grapevine. Balance pet trainer for Postural stability, Random control, Limits of stability and Maze control. HEP review and OSwestry LBP Scale reassessment. Total minutes of Exercise: 22ex,13neuro Manual Therapy: NA HOME EXERCISE PROGRAM: pt given HEP for scapular retraction, shld shrugs, and standing at wall to extend posture. pt performed forward lunges, side lunges x 5 reps BLE. Green theraband for resisitve df. Blue theraband for UE pull-downs with isometric hip add for core strengthening. Uni-lateral standing at kitchen counter for balance. - Objective Findings Observations,measurements,etc.: Oswestry score is 11 or 22% impairment placing him into the CJ category - Charges Total Direct Minutes: 35 Total Treatment Time: 55 Procedures billed for this date of service:: hp, ex, neuro Assessment: Patient sustained recent fall while helping carry an item to his truck. He fell into the side of the truck with his L side and then to the ground. A bystander lifted him up off the ground. He denied needing medical attention. It was discussed at his previous session that he is meeting his medicare cap and that we will need to discontinue therapy at today's appt. Patient understands this and does not wish to privately pay for any remainder of treatment. Patient Education: Body/Joint mechanics, Home Exercise Program, Home Safety Patient demonstrates compliance with HEP?: Yes (needs to be more consistent) Short Term Goals Goal #1: pt with decreased muscle tightness B hamstrings and paraspinal muscles. Goal to be met by: 02/12/17 Progress towards Goal:: Met Goal #2: pt with no reports of pain noted with lumbar ROM. Goal to be met by: 02/12/17 Progress towards Goal:: Progressing Goal #3: pt will consistently clear feet with amb with cane in dept. Goal to be met by: 02/12/17 Progress towards Goal:: Met Progress towards Goal:: Met Long-Term Goals Goal #1: pt with improved dyn stand balance as noted by tinetti score 22/28 Goal to be met by: 02/28/17 Progress towards goal: Progressing Comments: 18 Goal #2: pt amb community distances with cane with improved posture, step length Goal to be met by: 02/28/17 Progress towards goal: Progressing Goal #3: pt independent with HEP to maintain functional gains after dc Goal to be met by: 02/28/17 Progress towards goal: Progressing Goal #4: pt with no reports of falls in last week. Goal to be met by: 02/28/17 Progress towards goal: Progressing Plan PLAN OF CARE EXPIRES ON:: 02/28/17 ORDER # VISITS AND/OR THROUGH DATE: 12 visits through 02/28/17 PLAN: Discontinue and plan to discharge as pt has made some progress and will be able to maintain his progress with HEP. He also has met his medicare cap and wishes to stop at this point.
--- NOTE | 2017-03-03 10:10 | RS.OPPTDC ---
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 Current Complaints/Gains: Patient is happy with the progress he has made. He states he is driving without difficulty. He is able to ascend/descend 3 stairs at home and takes pain medication (Ibuprofen ) periodically. Pain Assessment - Pain Description Pain Location: lumbar spine and L side of trunk Current Pain Intensity: elevated due to fall and colder, wet weather Functional Outcome Measure Oswestry LBP: 11 Tinetti: 18 - G Codes & Severity Modifier G Codes & Modifier: mobility d/c CJ. mobility goal CI Source of G Code score: oswestry Observation - Observation Posture: Forward Head, Rounded Shoulders Gait - Gait Pattern General Gait Pattern Observation: Crouched Gait, Shuffling Step, Decrease Stride Lngth (R), Decrease Stride Lngth (L) Gait Comments: pt has improved with back and hip pain allowing him to lift items and carry objects but gait anomaly remains unchanged except with sit to/ from stand transfers. Interventions - Exercise/Activities/Manual Therapy Exercises/Activities: HS, SKTC, and piriformis stretching, multiple reps. Wand for overhead flexion with isometric hip add, core strengthening, multiple reps. Blue theraband for resistive UE pulldowns with isometric hip add, 2s/10reps each. Isometric hip add and isometric hip flexion. Alt hip flexion in hook- lying. In sitting, green theraband for scapular retraction 3s/10reps. Unilateral standing. Side-step marching and grapevine. Balance outdoor fitness trainer for Postural stability, Random control, Limits of stability and Maze control. HEP review and OSwestry LBP Scale reassessment. Total minutes of Exercise: n/a Manual Therapy: NA HOME EXERCISE PROGRAM: pt given HEP for scapular retraction, shld shrugs, and standing at wall to extend posture. pt performed forward lunges, side lunges x 5 reps BLE. Green theraband for resisitve df. Blue theraband for UE pull-downs with isometric hip add for core strengthening. Uni-lateral standing at kitchen counter for balance. - Charges Total Direct Minutes: n/a Total Treatment Time: n/a Procedures billed for this date of service:: n/a Assessment Assessment: pt has had improvement with pain and increased strength until he had a fall on 02/17/17 while carrying an item to his truck. He admits not being consistent with HEP. Patient Education: Home Exercise Program, Home Safety, Activity Modification, Education of Plan of Care Short Term Goals Goal #1: pt with decreased muscle tightness B hamstrings and paraspinal muscles. Goal to be met by: 02/12/17 Progress towards Goal:: Met Goal #2: pt with no reports of pain noted with lumbar ROM. Goal to be met by: 02/12/17 Progress towards Goal:: Progressing Goal #3: pt will consistently clear feet with amb with cane in dept. 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 Goal to be met by: 02/28/17 Progress towards goal: Progressing Plan Comments: dc this date, pt is independent with HEP.
== END 2017-03-20 ==
PROVIDERS: ATTEND Neurological Surgery
DX: M47.16 Other spondylosis with myelopathy, lumbar region (principal)

== ENCOUNTER 2017-04-25 12:42 | Outpatient (CLI) ==
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
== END 2017-04-25 12:43 | disposition home or self-care (01) ==
LOC: RAD 12:42
PROVIDERS: ATTEND Family Medicine
DX: M25.552 Pain in left hip (principal); M25.562 Pain in left knee; V89.2XXA Person injured in unspecified motor-vehicle accident, traffic, initial encounter

== ENCOUNTER → 2017-05-21 | Outpatient (RCR) | payer OTHER ==
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
== END ==
PROVIDERS: ATTEND Family Medicine
DX: M25.552 Pain in left hip (principal); M54.5 Low back pain; R26.9 Unspecified abnormalities of gait and mobility; M25.562 Pain in left knee; V89.2XXD Person injured in unspecified motor-vehicle accident, traffic, subsequent encounter

== ENCOUNTER 2017-05-30 13:00 | Outpatient (RCR) | payer OTHER ==
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
== END 2017-06-18 ==
PROVIDERS: ATTEND Family Medicine
DX: M25.552 Pain in left hip (principal); M25.569 Pain in unspecified knee; V89.2XXD Person injured in unspecified motor-vehicle accident, traffic, subsequent encounter

== ENCOUNTER 2018-01-23 11:47 | Outpatient (CLI) ==
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
== END 2018-01-23 11:48 | disposition home or self-care (01) ==
LOC: RAD 11:47
PROVIDERS: ATTEND Family Medicine
DX: R29.6 Repeated falls (principal); S00.93XA Contusion of unspecified part of head, initial encounter; R51 Headache

== ENCOUNTER 2018-02-18 10:00 | Outpatient (RCR) ==
--- NOTE | 2018-01-27 16:19 | RS.OPPTEV2 ---
Date of Note: 01/27/18 Visit #: 1 Date of Evaluation: 01/27/18 Payer Source: MEDICARE Surgery Performed?: No Treatment Diagnosis: Parkinson's Disease History of Condition/Mechanism of Injury:: pt reports he is just here because the doctor wanted him to come. Prior Level of Function.....Patient was independent with: Self Care, Ambulation/ Mobility, Community Integration/Access Level of Function: pt lives at [facility]. pt is independent with shower, has grab bars in bathroom. pt amb with cane independently. Functional Limitations: Self Care, ADL's, Standing, Bending, Squatting, Ambulation, Community Access/Integration Current Subjective/complaints:: pt states that he falls almost daily, the last fall was yesterday fell down onto knees. States last week he fell 2x in one day and hit his head. Treatment Side (optional): N/A Medical History Medical History: Hypertension, Arthritis Medical History Comments:: Parkinson's disease, depression/anxiety, hiatal hernia, GERD, chronic back pain, insomnia, hx DVT, chronic constipation. Surgical History: Knee Replacement Surgical History Comments:: right TKA, Left TKA 05/24/16, bilateral CTS Smoking Status: Former smoker Hx Home Medications: ascriptin, atorvastatin, ocanaspfm-qxesikrl-byfaipureq, aspirin, fluoxetine, lisinopril, metoprolol tartrate, multivitamin, nexium, Patient's Goals: be stronger, not fall Functional Outcome Measure Tinetti: 10 (64%) - G Codes & Severity Modifier G Codes & Modifier: mobility walking and moving around: current CL. mobility walking and moving around: goal CK Source of G Code score: tinetti balance scale Observation - Observation Inspection: pt with bruising B knees, as well as scabbed areas to B knees. pt with tenderness to L shld with ROM Posture: Forward Head, Rounded Shoulders, Increased Thoracic Kyphosis, Decreased Lumbar Lordosis Handedness: Right Gait - Gait Pattern General Gait Pattern Observation: Festinating Gait, Narrow Based Gait, Crouched Gait, Decrease Stride Lngth (R), Decrease Stride Lngth (L) Gait Comments: pt amb with decreased step length, flexed posture, narrow base of support with occasional scissoring, as well as festinating pattern at times. pt amb with cane, 3 episodes of LOB requiring CGA to maintain balance. General Range of Motion: BUE WFL's. BLE WFL's Muscle Strength: RUE shld flex grossly 5/5, LUE shld flex 4/5, elbow flex/ext 4+ /5. BLE hip flex 4/5, knee flex/ext 4+/5, ankle DF/PF 4/5 Sensation - Sensation Right Upper Extremity: Intact/Normal Left Upper Extremity: Intact/Normal Right Lower Extremity: Intact/Normal Left Lower Extremity: Intact/Normal Balance - Sitting Balance Static Sitting Balance: Good Dynamic Sitting Balance: Good - Standing Balance Static Standing Balance: Fair Dynamic Standing Balance: Poor - Comments Balance Assessment Comments: tinetti balance assessment 02/15 which is consistent with high risk of falls. gait speed 0.7m/sec which is consistent with limited community ambulator Interventions - Exercise/Activities/Manual Therapy Exercises/Activities: pt received hamstring stretch, knee to chest, heel cord stretch. pt performed forward lunges x 5 bilateral, side lunges x 5 bilateral. Sit to/from stand with UE extended x 5 reps Manual Therapy: NA HOME EXERCISE PROGRAM: SKTC and pillow squeezes, bridging, QS, alternate LE lift - Charges Timed Code Treatment Minutes: 48 Total Treatment Time: 55 Procedures billed for this date of service:: eval med, ex EVALUATION COMPLEXITY LEVEL EVALUATION COMPLEXITY LEVEL: HISTORY: Medium (parkinson's, htn, OA), EXAM OF BODY SYSTEMS: Medium (gait abnormality, balance, strength, posture, ), CLINICAL PRESENTATION: Medium, CLINICAL DECISION MAKING: Medium Assessment Assessment: pt presents with decreased strength, balance, posture, and gait safety due to parkinson's disease. pt is at a high risk of falls. pt has had multiple falls recently. Patient Education: Home Exercise Program, Education of Plan of Care Rehab Potential: Good Short Term Goals Goal #1: pt transfer sit to/from stand without UE support on 1st attempt Goal to be met by: 02/10/18 Goal #2: pt amb in dept with AAD with no LOB and improved posture Goal to be met by: 02/10/18 Goal #3: pt demonstrate improved strength BLE 4+/5 Goal to be met by: 02/10/18 Goal #4: Independent with initial HEP Goal to be met by: 02/10/18 Shelter Goals Goal #1: Improved gait speed to >0.8m/s to be consistent with community ambulator Goal to be met by: 02/24/18 Goal #2: Decreased to mod risk of falls as noted on tinetti score Goal to be met by: 02/24/18 Goal #3: pt amb community distances with AAD with no LOB Goal to be met by: 02/24/18 Goal #4: pt with no reports of falls in last week. Goal to be met by: 02/24/18 Plan - Treatment to be Provided Procedures: Therapeutic Exercises, Therapeutic Activity, Gait Training, Neuromuscular Rehab, Patient Education Modalities: No Modalities - Treatment Plan Frequency: 2 X week Duration: 4 weeks ORDER # VISITS AND/OR THROUGH DATE: 02/24/18 - Treatment Code (1) Balance disorder Code(s): R26.89 - OTHER ABNORMALITIES OF GAIT AND MOBILITY (2) Gait abnormality Code(s): R26.9 - UNSPECIFIED ABNORMALITIES OF GAIT AND MOBILITY (3) Parkinson disease Code(s): G20 - PARKINSON'S DISEASE (4) Weakness of both lower extremities Code(s): R29.898 - OTH SYMPTOMS AND SIGNS INVOLVING THE MUSCULOSKELETAL SYSTEM
--- NOTE | 2018-02-03 11:27 | RS.OPPTDN ---
Subjective Date of Note: 02/03/18 Visit #: 3 Number of visits approved by Insurance: 2x4 sessions to be completed by 02/24/18 Date of Evaluation: 01/27/18 Payer Source: MEDICARE Treatment Diagnosis: Parkinson's Disease Current Subjective/complaints:: Patient says he has been trying to take longer strides with walking and has been performing his HEP once daily. He says he has driven ~45 mins to a convention over the weekend and had no episodes of LOB or unsteadiness. He is using a wooden cane on the R side. He c/o soreness into the L hip with getting up out of bed and with some exercises rating 4/10. 0/10 at rest. Interventions - Exercise/Activities/Manual Therapy Exercises/Activities: Patient receives passive stretching to bilateral LEs: SKTC, HS, Piriformis, Fig 4, Lower trunk rotation x 4. Patient performs: QS, Ball squeezes, hooklying hip abd with green tband, alternate LE lift with 2 1/2 # each, SAQ 2 1/2#, green tband for DF, Bridging (2x5), all 2x10 reps. Sitting : 3# wand for bilateral shoulder flexion to ~90 shoulder flexion x 10. Green tband for scap retraction with 1# wand 2x10. Stationary bike for for/retro x 5 mins with prompts to switch positions and assistance with pedals. Patient receives cues for gait to increase stride length and exaggerated hip hike to clear the foot during ambulation. Total minutes of Exercise: 40 Manual Therapy: NA HOME EXERCISE PROGRAM: SKTC and pillow squeezes, bridging, QS, alternate LE lift - Charges Timed Code Treatment Minutes: 40 Total Treatment Time: 40 Procedures billed for this date of service:: ex3 Assessment: Patient demo less scissoring today during amb back to the dept. He prompts himself to take longer strides to prevent LOB or stumbling. He has been fall free since eval. He is mayra all progressive therex well other than mild soreness to the L hip during alternate LE lift. He has some difficulty with bed mobility to the R to avoid L hip soreness. He needs cues to log roll, but then has c/o that R hip is hurting. Discussed why sitting straight up out of bed is not recommended and he was able to log roll, but with constant physical and verbal cues. Patient Education: Education of diagnosis, Home Exercise Program, Home Safety Patient demonstrates compliance with HEP?: Yes Short Term Goals Goal #1: pt transfer sit to/from stand without UE support on 1st attempt Goal to be met by: 02/10/18 Progress towards Goal:: Progressing Comments:: He demo this well today Goal #2: pt amb in dept with AAD with no LOB and improved posture Goal to be met by: 02/10/18 Goal #3: pt demonstrate improved strength BLE 4+/5 Goal to be met by: 02/10/18 Goal #4: Independent with initial HEP Goal to be met by: 02/10/18 Longterm Goals Goal #1: Improved gait speed to >0.8m/s to be consistent with community ambulator Goal to be met by: 02/24/18 Goal #2: Decreased to mod risk of falls as noted on tinetti score Goal to be met by: 02/24/18 Goal #3: pt amb community distances with AAD with no LOB Goal to be met by: 02/24/18 Goal #4: pt with no reports of falls in last week. Goal to be met by: 02/24/18 Plan Dates of Wholesale Diamond Broker Goals: 02/24/18 Expiration date of current Insurance Approval:: 02/24/18 PLAN: Patient to continue with advancing strengthening to bilateral LEs and gait exercises.
--- NOTE | 2018-02-05 14:35 | RS.OPPTDN ---
Subjective Date of Note: 02/05/18 Visit #: 4 Number of visits approved by Insurance: 8 sessions through 02/24/18 Date of Evaluation: 01/27/18 Payer Source: MEDICARE Treatment Diagnosis: Parkinson's Disease Current Subjective/complaints:: Patient says he ran errands in [place] yesterday and did not have any bal issues or unsteadiness. Patient reports a fall this morning in his bedroom. Reports he felt it coming on, was nauseated and slid onto his R buttock. He denies any other injury. States it is not bothering him to need treatment for it. States he was able to get up off of the floor in which he would not have been able to do so had it not been for therapy. States he has gone from daily falls to ~2 weeks until today. Interventions - Exercise/Activities/Manual Therapy Exercises/Activities: Patient receives passive stretching to bilateral LEs: SKTC, HS, Piriformis, Fig 4, Lower trunk rotation x 4. Patient performs: QS, Ball squeezes, hooklying hip abd with green tband, alternate LE lift with 2 1/2 # each, SAQ 2 1/2# alternating, green tband for DF, Bridging (2x5), all 2x10 reps. Lower trunk rotation with ball squeeze, bilateral SAQ 2 1/2# ea holding ball at ankles 2x10. SLR x 10. Sittin# wand for bilateral shoulder flexion to ~100 shoulder flexion x 10. Green tband for scap retraction with 1# wand 2x10. Stationary bike for for/retro x 5 mins with prompts to switch positions and assistance with pedals. Patient receives cues for gait to increase stride length and exaggerated hip hike to clear the foot during ambulation. Patient continues with stationary bike for/retro x 5 mins for/ retro. Prompts to switch directions and positioning seat. Patient sit to stand with cues to push off from chair x 3. Total minutes of Exercise: 45 Manual Therapy: NA HOME EXERCISE PROGRAM: SKTC and pillow squeezes, bridging, QS, alternate LE lift - Charges Timed Code Treatment Minutes: 45 Total Treatment Time: 50 Procedures billed for this date of service:: ex3 Assessment: Patient experienced first fall since beginning therapy today in his bedroom. He denies feeling dizzy, but light nausea prior to slidding onto the floor. He presents to therapy with SC and shuffling/festinating gait. However , he does demo slight improvement with space width between feet during swing phase. He is able to resume all therex in the dept, with continuous encouragement and cues to increase his hip flexion to clear his feet with amb. Patient was instructed to hip hike/march in standing position prior to walking out of dept to improve risk of further falls. Patient Education: Home Exercise Program, Home Safety, Education of Plan of Care Patient demonstrates compliance with HEP?: Yes Short Term Goals Goal #1: pt transfer sit to/from stand without UE support on 1st attempt Goal to be met by: 02/10/18 Progress towards Goal:: Progressing Goal #2: pt amb in dept with AAD with no LOB and improved posture Goal to be met by: 02/10/18 Goal #3: pt demonstrate improved strength BLE 4+/5 Goal to be met by: 02/10/18 Progress towards Goal:: Progressing Goal #4: Independent with initial HEP Goal to be met by: 02/10/18 Progress towards Goal:: Progressing Automation And Controls Manager Goals Goal #1: Improved gait speed to >0.8m/s to be consistent with community ambulator Goal to be met by: 02/24/18 Goal #2: Decreased to mod risk of falls as noted on tinetti score Goal to be met by: 02/24/18 Goal #3: pt amb community distances with AAD with no LOB Goal to be met by: 02/24/18 Goal #4: pt with no reports of falls in last week. Goal to be met by: 02/24/18 Plan Dates of Automation And Controls Manager Goals: 02/24/18 Expiration date of current Insurance Approval:: 02/24/18, 4 sessions remaining PLAN: Continue to work on gait pattern and strengthening exercises for LE/UE to assist with reactions to decrease falls.
--- NOTE | 2018-02-09 11:40 | RS.OPPTDN ---
Subjective Date of Note: 01/29/18 Visit #: 2 Number of visits approved by Insurance: na order is 2x4 Date of Evaluation: 01/27/18 Payer Source: MEDICARE Treatment Diagnosis: Parkinson's Disease Current Subjective/complaints:: Patient states he is performing HEP and has not had any falls to this date since beginning therapy. He c/o having to physically pull his eye lids open due to Parkinsons Dse and that he also is aggravated about drooling as a side effect as well. Interventions - Exercise/Activities/Manual Therapy Exercises/Activities: Patient receives passive stretching to bilateral LEs: SKTC, HS, Piriformis, Fig 4, Lower trunk rotation x 4. Patient performs: QS, Ball squeezes, hooklying hip abd with green tband, alternate LE lift with 2 1/2 # each, SAQ 2 1/2#, green tband for DF, Bridging (2x5), all 2x10 reps. Sitting : 3# wand for bilateral shoulder flexion to ~90 shoulder flexion x 10. Green tband for scap retraction with 1# wand 2x10. Trunk/bal exercises with resistance for ant/post lean and L and R x 5. Grapevining at railing and heel to toe amb 2x10'. Stationary bike for for/retro x 5 mins with prompts to switch positions and assistance with pedals. Patient receives cues for gait to increase stride length and exaggerated hip hike to clear the foot during ambulation. Total minutes of Exercise: 45 Manual Therapy: NA HOME EXERCISE PROGRAM: SKTC and pillow squeezes, bridging, QS, alternate LE lift - Charges Timed Code Treatment Minutes: 45 Total Treatment Time: 50 Procedures billed for this date of service:: ex2, neuro1 Assessment: Patient continues to receive and instruction given for exaggerated hip hike during amb to clear feet as well as avoiding feet close to each other and scissoring. He does not correct with cues most times. He is able to mayra all therex and maintains bal with standing ex's. He has maintained no falls to date. Patient Education: Education of diagnosis, Body/Joint mechanics, Home Safety Patient demonstrates compliance with HEP?: Yes Short Term Goals Goal #1: pt transfer sit to/from stand without UE support on 1st attempt Goal to be met by: 02/10/18 Progress towards Goal:: Progressing Goal #2: pt amb in dept with AAD with no LOB and improved posture Goal to be met by: 02/10/18 Progress towards Goal:: Progressing Goal #3: pt demonstrate improved strength BLE 4+/5 Goal to be met by: 02/10/18 Goal #4: Independent with initial HEP Goal to be met by: 02/10/18 Financial Services Intern Goals Goal #1: Improved gait speed to >0.8m/s to be consistent with community ambulator Goal to be met by: 02/24/18 Goal #2: Decreased to mod risk of falls as noted on tinetti score Goal to be met by: 02/24/18 Goal #3: pt amb community distances with AAD with no LOB Goal to be met by: 02/24/18 Goal #4: pt with no reports of falls in last week. Goal to be met by: 02/24/18 Plan Dates of Financial Services Intern Goals: 02/24/18 Expiration date of current Insurance Approval:: 02/24/18, 2x4 order PLAN: Continue with progressive therex to assist with balance and gait to prevent falls.
--- NOTE | 2018-02-09 13:42 | RS.OPPTDN ---
Subjective Date of Note: 02/09/18 Visit #: 6 Number of visits approved by Insurance: 2x4, 8 total to 02/24/18 Date of Evaluation: 01/27/18 Payer Source: MEDICARE Treatment Diagnosis: Parkinson's Disease Current Subjective/complaints:: Patient admits another fall over the weekend. He says he is unsure how it happened, but he is not hurt. He says he was walking within his room and he doesn't remember how he landed, but knows he was able to get up on his own. He says he is definitely affected also when it is night. He reports nearly falling with his son while walking him to his car in the dark, but son was able to prevent the fall. Reports he is able to walk better and prevent falling if he walks sideways or "grapevine" and cross his legs to stand up and take the first few steps. Interventions - Exercise/Activities/Manual Therapy Exercises/Activities: Patient receives passive stretching to bilateral LEs: SKTC, HS, Piriformis, Fig 4, Lower trunk rotation x 4. Patient performs: QS, Ball squeezes, hooklying hip abd with green tband, alternate LE lift with 2 1/2 # each, SAQ 2 1/2#, green tband for DF, Bridging with 2 1/2# on abdomen (2x5), all 2x10 reps. Sittin# wand for bilateral shoulder flexion x 10. Green tband for scap retraction with 1# wand 2x10. Trunk/bal exercises with resistance for ant/post lean and L and R x 5. Marching, heel raises, alternate hip abd, alternate leg raise crossing midline hitting marked target for bal x 10. Bilateral arm slides onto wall for posture and bal. Step ups onto Balance new product trainer for stair with 2 handbars x8 with prompts for sequencing. Stationary bike for for/retro x 6 mins with prompts to switch positions and assistance with pedals. Patient continue receiving cues for gait to increase stride length and exaggerated hip hike to clear the foot during ambulation. Patient assisted to vehicle with patient using SC (wooden). Total minutes of Exercise: 53 Manual Therapy: NA HOME EXERCISE PROGRAM: SKTC and pillow squeezes, bridging, QS, alternate LE lift - Charges Timed Code Treatment Minutes: 53 Total Treatment Time: 60 Procedures billed for this date of service:: ex3, neuro1 Assessment: Patient had admitted another fall within 1 week. He is not able to know how it happened, but rejects need for treatment. He rates pain 4/10 at the L hip intermittently. He continues to amb with shuffling gait, scissoring intermittently, and does not correct with instruction today or previous visit. He demo crossing the L foot over the R when getting out of the dept chair and proceeds to amb down the hallway straight. He admits this is the easiest way for him to get up and it avoids him falling. He was instructed to use hands to push up from the dept chair and to not cross his legs. With also having repeated cues to log roll out of bed, patient wishes to rock and sit up straight out of bed because log rolling is too difficult. Patient Education: Education of diagnosis, Body/Joint mechanics, Home Exercise Program, Home Safety Patient demonstrates compliance with HEP?: Yes Short Term Goals Goal #1: pt transfer sit to/from stand without UE support on 1st attempt Goal to be met by: 02/10/18 Progress towards Goal:: Progressing Comments:: Patient sit to stand with 1 R UE support on 1st attempt today Goal #2: pt amb in dept with AAD with no LOB and improved posture Goal to be met by: 02/10/18 Progress towards Goal:: Progressing Comments:: no improvement with posture currently Goal #3: pt demonstrate improved strength BLE 4+/5 Goal to be met by: 02/10/18 Progress towards Goal:: Met Comments:: tested today Goal #4: Independent with initial HEP Goal to be met by: 02/10/18 Progress towards Goal:: Progressing Practice Administrator Goals Goal #1: Improved gait speed to >0.8m/s to be consistent with community ambulator Goal to be met by: 02/24/18 Goal #2: Decreased to mod risk of falls as noted on tinetti score Goal to be met by: 02/24/18 Goal #3: pt amb community distances with AAD with no LOB Goal to be met by: 02/24/18 Goal #4: pt with no reports of falls in last week. Goal to be met by: 02/24/18 Plan Dates of Shelter Goals: 02/24/18 Expiration date of current Insurance Approval:: 11/6/18 PLAN: Patient to continue x3 more sessions to progress therex further to hopefully strengthen enough to help assist him with getting up off of the floor if he falls as well as gait/bal exercises.
--- NOTE | 2018-02-12 11:56 | RS.OPPTDN ---
Subjective Date of Note: 02/12/18 Visit #: 6 Number of visits approved by Insurance: 8 Date of Evaluation: 01/27/18 Payer Source: MEDICARE Treatment Diagnosis: Parkinson's Disease Current Subjective/complaints:: Patient reports another fall this morning (3 total since beginning PT). He says his body shifted and his legs didn't move. He reports it was in his home and he fell onto his knees and R elbow/hands to block fall. He says he is not using his RW because it is in storage and he does not have room in his apt due to scattered boxes that remain to be unpacked. He says he does fine out of his home travelling to the [facility] earlier this week and using his SC. He says therapy may not help him because his Parkinsons is advancing. Interventions - Exercise/Activities/Manual Therapy Exercises/Activities: Lengthy discussion with Luca about his progress and how it pertains to his falls/goals. Spoke with him on POC and modification of exercise today. Patient begins with stationary bike adjusting often for seat and prompts to change positions for/retro x 6 mins. Leg press advancing from 45 #, 60#, 75#, and 90# x 12 with cues on slowing speed and instructed on how to perform them/benefits, amb to wall rail with wooden SC instructing in slowing speed and increasing hip hike to clear bilateral feet. 2 1/2# each LE for hip abd, marching, heel raises (no hand rail needed on latter 2 exercises), Scap adduction, shoulder shrugs, and isometric neck retraction to assist with posture , x 5-10. Standing against wall for 3# wand for shoulder flexion x 10 and red tband for scap retraction. Dynamic bal exercise: nudging for ant/post/lateral leans with eyes open and closed x 2. Assisted patient to his vehicle due to fall risk. Total minutes of Exercise: 38 Manual Therapy: NA HOME EXERCISE PROGRAM: SKTC and pillow squeezes, bridging, QS, alternate LE lift - Charges Timed Code Treatment Minutes: 38 Total Treatment Time: 38 Procedures billed for this date of service:: ex, neuro2 Assessment: Patient encouraged to use RW in his home for added safety and possibly reduce falls. Discussed POC and progress or lack of through treatment concerning falls. He is able to get up independently when he has fallen, so this is better than prior to PT. Patient has little space in his apt due to several boxes left unpacked and feels he needs his cane. He is able to maintain standing bal with resistance and perform dynamic activities with no LOB. He will continue 1 more session to strengthen LE's and perform dynamic activities, then D/c. Patient Education: Home Exercise Program, Home Safety, Education of Plan of Care Patient demonstrates compliance with HEP?: Yes Short Term Goals Goal #1: pt transfer sit to/from stand without UE support on 1st attempt Goal to be met by: 02/10/18 Progress towards Goal:: Partially Met Comments:: Patient able to perform with 1st attempt, but uses hands Goal #2: pt amb in dept with AAD with no LOB and improved posture Goal to be met by: 02/10/18 Progress towards Goal:: Progressing Comments:: No improvement with posture based on Parkinsons Goal #3: pt demonstrate improved strength BLE 4+/5 Goal to be met by: 02/10/18 Progress towards Goal:: Met Goal #4: Independent with initial HEP Goal to be met by: 02/10/18 Progress towards Goal:: Progressing Senior Care Goals Goal #1: Improved gait speed to >0.8m/s to be consistent with community ambulator Goal to be met by: 02/24/18 Goal #2: Decreased to mod risk of falls as noted on tinetti score Goal to be met by: 02/24/18 Goal #3: pt amb community distances with AAD with no LOB Goal to be met by: 02/24/18 Goal #4: pt with no reports of falls in last week. Goal to be met by: 02/24/18 Plan Dates of Senior Care Goals: 02/24/18 Expiration date of current Insurance Approval:: 02/24/18 PLAN: Continue x 1 more session
--- NOTE | 2018-02-18 12:03 | RS.OPPTDN ---
Subjective Date of Note: 02/18/18 Visit #: 7 Number of visits approved by Insurance: 8 Date of Evaluation: 01/27/18 Payer Source: MEDICARE Treatment Diagnosis: Parkinson's Disease Current Subjective/complaints:: Patient admits another fall yesterday in his home. He says he was unpacking some of his boxes to clear his apt. and he became dizzy and lost bal onto the floor. He said he landed on his knees like last time, but says he was fine. He reports while he was on the floor, he just decided to perform his HEP. Pain Assessment - Pain Description Pain Location: C/o mild soreness to the L hip Interventions - Exercise/Activities/Manual Therapy Exercises/Activities: Patient receives passive stretching: Piriformis, fig 4, HS, lower trunk rotation, and heel cords bilaterally. He performs Bridging (3# on abdomen), SLR, SAQ3#, DF with green tband, hooklying hip abd green tband, alternate LE lift 3# each, sitting at EOB: Isometrics for trunk using lateral, ant/post lean x 2, 3# wand for bilateral shoulder flexion and green tband retraction 2x10. Instructed and provided more handout for HEP and green and red tbands. Tinetti Reassessment taking pt through all activities. Total minutes of Exercise: 40 Manual Therapy: NA HOME EXERCISE PROGRAM: SKTC and pillow squeezes, bridging, QS, alternate LE lift - Objective Findings Observations,measurements,etc.: Tinetti: Balance 02/03, Gait 8/12 or 36% impairment. Eval (Balance 09/03, Gait 5/12) or 64% impairment - Charges Timed Code Treatment Minutes: 40 Total Treatment Time: 40 Procedures billed for this date of service:: neuro1, ex2 Assessment: Patient ayan improved bal and gait in our dept and verbally admits he is safe and feels steady in community distances, but remains with frequent falls at home due to clutter and short distances making him feel more unsteady and nervous. He has progressed from daily falls to ~2 per week on avg. He recalls no injury, but does have mild soreness with rest and exercise to the L hip he is unsure if related to fall. He has demo improved score from Tinettis mostly limited still with shuffling and feet remain close together, but no longer scissoring. Patient Education: Education of diagnosis, Home Exercise Program, Home Safety, Education of Plan of Care Patient demonstrates compliance with HEP?: Yes Short Term Goals Goal #1: pt transfer sit to/from stand without UE support on 1st attempt Goal to be met by: 02/10/18 Progress towards Goal:: Partially Met Comments:: he uses hand/cane on 1st attempt Goal #2: pt amb in dept with AAD with no LOB and improved posture Goal to be met by: 02/10/18 Progress towards Goal:: Partially Met Goal #3: pt demonstrate improved strength BLE 4+/5 Goal to be met by: 02/10/18 Progress towards Goal:: Met Goal #4: Independent with initial HEP Goal to be met by: 02/10/18 Progress towards Goal:: 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 Goal to be met by: 02/24/18 Progress towards goal: Not Met (avg ~2 falls per week) Plan Dates of [facility] Goals: 02/24/18 Expiration date of current Insurance Approval:: 02/24/18 PLAN: Patient to hold further therapy as he continues to have frequent falls, though he has made improvement with Tinettis. He was encouraged to use safety techniques at home/community with gait and progressed HEP with tbands.
--- NOTE | 2018-02-18 15:49 | RS.OPPTDC ---
Date of Discharge: 02/18/18 Date of Evaluation: 01/27/18 Number of Visits: 7 Treatment Diagnosis: Parkinson's Disease Current Level of Function: pt improved with gait and balance scores per tinetti assessment and gait speed. pt continues to amb with decreased KIANA, but does not have scissor gait. Able to stand with only 1 attempt to rise. pt uses straight cane consistently Current Complaints/Gains: Patient reports continued frequent falls. Reports he is now able to get up from the floor independently. pt denies needing medical care due to falls. pt states he is safe with community distances but with increased difficulty at home due to clutter. Functional Outcome Measure Tinetti: 18 (36%) - G Codes & Severity Modifier G Codes & Modifier: mobility walking and moving around: dc CJ. mobility walking and moving around: goal CK Source of G Code score: tinetti Observation - Observation Posture: Forward Head, Rounded Shoulders, Increased Thoracic Kyphosis, Decreased Lumbar Lordosis Gait - Gait Pattern General Gait Pattern Observation: Crouched Gait, Shuffling Step, Decrease Stride Lngth (R), Decrease Stride Lngth (L) Interventions - Exercise/Activities/Manual Therapy Exercises/Activities: n/a Manual Therapy: NA HOME EXERCISE PROGRAM: SKTC and pillow squeezes, bridging, QS, alternate LE lift - Charges Timed Code Treatment Minutes: n/a Total Treatment Time: n/a Procedures billed for this date of service:: n/a Assessment Assessment: pt has met STG 3, and did make progress toward remaining goals. Feel pt has reached max rehab potential at this time. 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 Goal to be met by: 02/24/18 Progress towards goal: Not Met (avg ~2 falls per week) Plan Reason for Discharge:: Maximum Potential Met
== END 2018-02-18 23:59 ==
PROVIDERS: ATTEND Family Medicine
DX: R29.6 Repeated falls (principal); G20 Parkinson's disease; R26.89 Other abnormalities of gait and mobility; R29.898 Other symptoms and signs involving the musculoskeletal system

== ENCOUNTER 2018-08-06 14:18 | Outpatient (CLI) | payer OTHER ==
--- NOTE | 2018-08-06 15:09 | US ---
EXAM: ULTRASOUND LOWER EXTREMITY VENOUS DOPPLER EXAM HISTORY: Leg swelling. FINDINGS: Bilateral lower extremity venous Doppler exam. Real time villarreal-scale, Doppler spectral sam lysis and color-flow Doppler imaging performed. The veins targeted for evaluation include the common femoral, greater saphenous, profundus, femoral, popliteal, peroneal, anterior tibial and posterior t ibial. The evaluated veins demonstrated normal spontaneous flow and compression without evidence o f thrombosis. IMPRESSION: No venous thrombosis identified within the areas evaluated.
== END 2018-08-06 14:19 | disposition home or self-care (01) ==
LOC: RAD 14:18
PROVIDERS: ATTEND Family Medicine
DX: R60.0 Localized edema (principal)